=== PATIENT | male | born 1970 | race Hispanic/Latino ===

== ENCOUNTER 2018-03-15 14:52 | Inpatient (IN) | payer MEDICARE, OTHER ==
--- NOTE | 2018-03-15 15:29 | ED PDOC ---
HPI: Psych/Substance Abuse Time Seen by Provider: 03/15/18 15:06 Chief Complaint (Nursing): Psychiatric Evaluation Chief Complaint (Provider): Psychiatric Evaluation History Per: Patient History/Exam Limitations: no limitations Onset/Duration Of Symptoms: Days Current Symptoms Are (Timing): Still Present Associated Symptoms: Depression, Suicidal Thoughts Additional Complaint(s): Jeremy Gaiens is a 47 year old male with a past medical history of depression who is presenting to the ED for evaluation of worsening depression and hopelessness. Patient states that he is homeless and resides at [facility] with his girlfriend. He reports that his girlfriends executive secretary social welfare has not been helping them and he feels that he will never escape homelessness. Patient states that he takes Depakote and trazodone but he hasnt taken them in a month as they were stolen at the alf. Patient has a history of suicide attempt: 7-10 years ago he tried to hang himself. Today he states that he has been thinking about laying on train tracks and ending it all. Patient denies any homicidal ideation or auditory and visual hallucinations. He offers no physical complaints. PMD: none provided Past Medical History Reviewed: Historical Data, Nursing Documentation, Vital Signs Vital Signs: Last Vital Signs Temp 98.1 F 03/15/18 15:01 Pulse 82 03/15/18 15:01 Resp 18 03/15/18 15:01 BP 112/69 03/15/18 15:01 Pulse Ox 98 03/15/18 15:01 - Medical History PMH: Depression - Surgical History Surgical History: Appendectomy - Family History Family History: States: Unknown Family Hx - Social History Current smoker - smoking cessation education provided: Yes Alcohol: Other (former alcoholic) Drugs: Denies - Home Medications Home Medications: Ambulatory Orders Medication Instructions Recorded RX: Unobtainable 03/15/18 - Allergies Allergies/Adverse Reactions: Allergies Allergy/AdvReac Type Severity Reaction Status Date / Time No Known Allergies Allergy Verified 03/15/18 15:00 Review of Systems ROS Statement: Except As Marked, All Systems Reviewed And Found Negative Psych: Positive for: Depression, Suicidal ideation. Negative for: Other (homicidal ideation, auditory or visual hallucinations) Physical Exam - Reviewed Nursing Documentation Reviewed: Yes Vital Signs Reviewed: Yes - Physical Exam Comments: GENERAL APPEARANCE: Patient is awake, alert, oriented x 3, in no acute distress. SKIN: Warm, dry; (-) cyanosis NECK: Supple, FROM HEART AND CARDIOVASCULAR: (-) irregularity CHEST AND RESPIRATORY: (-) rales, (-) rhonchi, (-) wheezes; breath sounds equal. Respirations even and nonlabored. ABDOMEN: Soft, (-) distention, (-) tenderness, (-) guarding. NEURO AND PSYCH: Mental status as above. (-) facial asymmetry. Gait steady. Speech: clear. (-) focal deficit. - Laboratory Results Result Diagrams: 03/15/18 19:54 03/15/18 19:54 - ECG ECG Rhythm: Positive for: Normal QRS, Normal ST Segment, Sinus Bradycardia Interpretation Of ECG: QTC 409 Rate: 56 O2 Sat by Pulse Oximetry: 98 (RA) Pulse Ox Interpretation: Normal Medical Decision Making Medical Decision Making: Time: 15:07 Impression: Psychiatric Evaluation Plan: --Crisis Evaluation --1:1 Observation 18:00 Crisis at bedside. 19:45 Per crisis, patient will be admitted for depression under Dr. Patino. Additional orders were placed: --alcohol serum --CMP --Drug screen --CVC --CXR --Urinalysis 21:10 Chest X-ray reviewed with no acute findings. Labs reviewed with no clinically significant abnormalities. Patient medically stable for psych admission. Arrangements made for admission. Vitals stable. Patient agreeable to admission at this time. Scribe Attestation: Documented by Sydnie Mac, acting as a scribe for Randa Garcia PA-C. Provider Scribe Attestation: All medical record entries made by the Scribe were at my direction and personally dictated by me. I have reviewed the chart and agree that the record accurately reflects my personal performance of the history, physical exam, medical decision making, and the department course for this patient. I have also personally directed, reviewed, and agree with the discharge instructions and disposition. Disposition - Clinical Impression Clinical Impression: Depression - Patient ED Disposition Is Patient to be Admitted: Yes Counseled Patient/Family Regarding: Studies Performed, Diagnosis - Disposition Disposition Time: 21:10 Condition: STABLE - Pt Status Changed To: Hospital Disposition Of: Inpatient - Admit Certification Admit to Inpatient:: After my assessment, the patient will require hospitalization for at least two midnights. This is because of the severity of symptoms shown, intensity of services needed, and/or the medical risk in this patient being treated as an outpatient. - POA Present On Arrival: None Results - Lab Results Lab Results: 03/15/18 03/15/18 03/15/18 19:54 19:54 19:54 WBC 6.8 RBC 4.28 L Hgb 13.6 Hct 41.4 MCV 96.9 H MCH 31.9 H MCHC 32.9 L RDW 13.8 Plt Count 191 MPV 8.7 Neut % (Auto) 45.3 L Lymph % (Auto) 44.2 H Martin % (Auto) 7.2 Eos % (Auto) 2.4 Baso % (Auto) 0.9 Neut # (Auto) 3.1 Lymph # (Auto) 3.0 Martin # (Auto) 0.5 Eos # (Auto) 0.2 Baso # (Auto) 0.1 Sodium Potassium Chloride Carbon Dioxide Anion Gap BUN Creatinine Est GFR ( Amer) Est GFR (Non-Af Amer) Random Glucose Calcium Total Bilirubin AST ALT Alkaline Phosphatase Total Protein Albumin Globulin Albumin/Globulin Ratio Urine Color Yellow Urine Clarity Slighty-cloudy Urine pH 7.0 Ur Specific [place] 1.025 Urine Protein Negative Urine Glucose (UA) Neg Urine Ketones Trace Urine Blood Negative Urine Nitrate Negative Urine Bilirubin Negative Urine Urobilinogen 0.2-1.0 Ur Leukocyte Esterase Neg Urine RBC (Auto) 2 Urine Microscopic WBC 1 Amorphous Sediment Few H Urine Opiates Screen Negative Urine Methadone Screen Negative Ur Barbiturates Screen Negative Ur Phencyclidine Scrn Negative Ur Amphetamines Screen Negative U Benzodiazepines Scrn Negative U Oth Cocaine Metabols Negative U Cannabinoids Screen Negative Alcohol, Quantitative 03/15/18 19:54 WBC RBC Hgb Hct MCV MCH MCHC RDW Plt Count MPV Neut % (Auto) Lymph % (Auto) Martin % (Auto) Eos % (Auto) Baso % (Auto) Neut # (Auto) Lymph # (Auto) Martin # (Auto) Eos # (Auto) Baso # (Auto) Sodium 141 Potassium 4.2 Chloride 104 Carbon Dioxide 29 Anion Gap 12 BUN 19 Creatinine 0.9 Est GFR ( Amer) > 60 Est GFR (Non-Af Amer) > 60 Random Glucose 89 Calcium 9.6 Total Bilirubin 0.3 AST 18 ALT 19 L Alkaline Phosphatase 43 Total Protein 7.0 Albumin 3.9 Globulin 3.1 Albumin/Globulin Ratio 1.3 Urine Color Urine Clarity Urine pH Ur Specific [place] Urine Protein Urine Glucose (UA) Urine Ketones Urine Blood Urine Nitrate Urine Bilirubin Urine Urobilinogen Ur Leukocyte Esterase Urine RBC (Auto) Urine Microscopic WBC Amorphous Sediment Urine Opiates Screen Urine Methadone Screen Ur Barbiturates Screen Ur Phencyclidine Scrn Ur Amphetamines Screen U Benzodiazepines Scrn U Oth Cocaine Metabols U Cannabinoids Screen Alcohol, Quantitative < 10
[2018-03-15 20:19] LABS: BASO # 0.1 K/uL (0.0-0.2); BASO % 0.9 % (0.0-2.0); EOS # 0.2 K/uL (0.0-0.7); EOS % 2.4 % (0.0-4.0); HEMOGLOBIN 13.6 g/dL (12.0-18.0); LYMPH % 44.2 % (20.0-40.0); MEAN CELL VOLUME 96.9 fl (80.0-94.0); MEAN CORPUSCULAR HEMOGLOBIN 31.9 pg (27.0-31.0); MEAN CORPUSCULAR HGB CONC 32.9 g/dL (33.0-37.0); MEAN PLATELET VOLUME 8.7 fl (7.2-11.7); MONO # 0.5 K/uL (0.0-0.8); MONO % 7.2 % (0.0-10.0); NEUT # 3.1 K/uL (1.8-7.0); NEUT % 45.3 % (50.0-75.0); RBC 4.28 Mil/uL (4.40-5.90); RED CELL DISTRIBUTION WIDTH 13.8 % (11.5-14.5); WHITE BLOOD COUNT 6.8 K/uL (4.8-10.8)
[2018-03-15 20:24] LABS: ALB/GLOB RATIO 1.3 (1.0-2.1); ALBUMIN 3.9 g/dL (3.5-5.0); ALT/SGPT 19 U/L (21-72); AST/SGOT 18 U/L (17-59); BLOOD UREA NITROGEN 19 mg/dl (9-20); CALCIUM 9.6 mg/dL (8.4-10.2); GFR NON-AFRICAN AMERICAN > 60; URINE AMORPHOUS SEDIMENT FEW /ul (<OCC); URINE BILIRUBIN NEGATIVE (NEGATIVE); URINE BLOOD NEGATIVE (NEGATIVE); URINE CLARITY SLIGHTY-CLOUDY (Clear); URINE COLOR YELLOW (YELLOW); URINE GLUCOSE (UA) NEG (Normal); URINE LEUKOCYTE ESTERASE NEG Leu/uL (Negative); URINE PROTEIN NEGATIVE (NEGATIVE); URINE UROBILINOGEN 0.2-1.0 mg/dL (0.2-1.0)
[2018-03-15 20:38] LABS: BARBITURATES, UR NEGATIVE (NEGATIVE); BENZODIAZEPINES, UR NEGATIVE (NEGATIVE); OPIATES, UR NEGATIVE (NEGATIVE); PHENCYCLIDINE, UR NEGATIVE (NEGATIVE)
[2018-03-15] MEDS ORDERED: DiphenhydrAMINE 50 mg/ml Inj IM PRN (22:35)
[2018-03-15] MEDS ORDERED: Alum-Mag Hydrox-Simethicone Susp (30 mL) PO PRN (22:35)
[2018-03-15] MEDS ORDERED: Magnesium Hydroxide Susp 30 ml UD PO PRN (22:35)
--- NOTE | 2018-03-15 22:52 | PCM.BM ---
<KamVeniceLiane C - Last Filed: 03/15/18 22:50> Treatment Plan Problems - Problems identified on initial assessmt Hopelessness/Helplessness Date Initiated: 03/15/18 Time Initiated: 22:50 Assessment reference: NA Status: Active Medication nonadherence Date Initiated: 03/15/18 Time Initiated: 22:50 Assessment reference: NA Status: Active Treatment assets and liabiliti Patient Assests: cooperative, self-reliant, ADL independent, negotiates basic needs Patient Liabilities: financial problems, poor support system, other (homeless) - Milieu Protocol Maintain good personal hygiene: daily Encourage regular showers, every shift Remind patient to perform daily oral care Conduct patient checks and document Observation sheet: Q15 minutes Maintain personal safety: every shift Educate patient to report safety concerns to staff, every shift Monitor environment for contraband/sharps Medication safety: Monitor for expected outcome, potential side effects: every shift, Assess barriers to learning: every shift, Assess readiness for medication education: every shift <Lizandro Tripp - Last Filed: 03/17/18 13:57> - Diagnosis (1) Depression as late effect of cerebrovascular accident (CVA) Status: Acute Interventions: 03/17/18 14:07 pharmacotherapy, psychotherapy <Brooks Smith - Last Filed: 03/17/18 17:39> Family Contact Family involvement: Famliy/SO not involved Family contact: Patient declines to allow family contact at present Family contact name: Pt denied. - Outside Agency Agency 1 Care involvment: Following patient during stay, Information-sharing Agency contact name: [facility] Agency contact number: [phone] ext. [phone] - Goals for Treatment Patient goals for treatment: Pt is looking for concrete services to end his homelessness. Discharge/Continuing Care - Education Needs Education Needs: Patient Medication, Patient Diagnosis/Disease Process, Patient Coping Skills, Patient Placement options, Patient Community resources, Patient Aftercare Safety Plan - Discharge Discharge Criteria: Tolerates medication w/o severe side effects, Normal sleep pattern, Ability to care for self, Reduction of target symptoms Discharge to:: Residential - Treatment Team Participation Patient/Family/SO Statement: 03/17/18 17:37 Pt was seen in treatment team on 03/17/18. Trileptal increase was discussed as pt reported hair loss side-effects on Depakote. Pt reported that he has "mirna days and rainy days" just like everyone else. Pt spoke about his homelessness being more than he can handle and feels overwhelmed with navigating it. Dr. Tripp spoke about initiating Aricept and Namenda to aid in memory issues. Discussed with Family/SO: No Was Patient/Family/SO present at Treatment Team Meeting: Yes
[2018-03-16 06:39] LABS: T4 6.42 ug/dl (5.5-11.0)
--- NOTE | 2018-03-16 06:50 | CARD ---
APPROVED REPORT Date of service: 03/15/2018 EKG Measurement Heart [id number] <Conclusion> Sinus bradycardia Otherwise normal ECG
--- NOTE | 2018-03-16 08:31 | RAD ---
Date of service: 03/15/2018 HISTORY: psych clearance COMPARISON: No prior. FINDINGS: LUNGS: The lungs are well inflated and clear. PLEURA: No pleural effusions or pneumothorax. CARDIOVASCULAR: The heart is normal in size. No aortic atherosclerotic calcification present. OSSEOUS STRUCTURES: Within normal limits for the patient's age. VISUALIZED UPPER ABDOMEN: Normal. OTHER FINDINGS: None. IMPRESSION: No active pulmonary disease.
--- NOTE | 2018-03-16 15:20 | PCM.PSYCH ---
Initial Psychiatric Evaluation - Initial Psychiatric Evaluation Type of Admission: Voluntary Chief Complaint (in patient's own words): I can't find a way to improve my life History of Present Illness and Precipitating Events: pt is 47 ys old male with previous psychiatric diagnosis of bipolar disorder presented to ER for having suicidal ideation with plan to jump infront of the train, pt has not been compliant with medications, reported feeling increasingly depressed in the context of loosing his job, being homeless and having financial difficulties. pt reported episodes of increase anger, irritability edginess and poor impulse control on the unit reported passive suicidal ideation without active plan or intent , denied perceptual disturbances, denied substance use Current Medications: Active Medications Generic Name Dose Route Start Last Admin Trade Name Freq PRN Reason Stop Dose Admin Acetaminophen 650 mg 03/15/18 22:35 Tylenol 325mg Tab PO Q4 PRN Pain, moderate (4-7) Al Hydrox/Mg Hydrox/Simethicone 30 ml 03/15/18 22:35 Maalox Plus 30 Ml PO Q4 PRN Dyspepsia Diphenhydramine HCl 50 mg 03/15/18 22:35 Benadryl IM Q6 PRN Extrapyramidal S/S Unable PO Diphenhydramine HCl 50 mg 03/15/18 22:35 Benadryl PO Q6 PRN Extrapyramidal Symptoms Diphenhydramine HCl 50 mg 03/15/18 22:41 Benadryl PO HS PRN Sleep Haloperidol 5 mg 03/15/18 22:35 Haldol PO Q4 PRN Agitation Haloperidol Lactate 5 mg 03/15/18 22:35 Haldol IM Q4 PRN Agitation, Unable to Take PO Lorazepam 1 mg 03/15/18 22:35 Ativan IM Q4 PRN Anxiety/Agitation,Unable PO Magnesium Hydroxide 30 ml 03/15/18 22:35 Milk Of Magnesia PO HS PRN Constipation Oxcarbazepine 150 mg 03/16/18 17:00 Trileptal PO BID KATIA Trazodone HCl 100 mg 03/16/18 22:00 Desyrel PO HS KATIA Past Psychiatric History - Past Psychiatric History Explanation of prior treatment: one hospitalization, six years ago after suicidal attempt by trying to hang self History of ETOH/Drug Use: denied Pertinent Medical Hx (Current Medical&Sleep Prob, Allergies): Allergies Allergy/AdvReac Type Severity Reaction Status Date / Time No Known Allergies Allergy Verified 03/15/18 15:00 Unobtainable 03/15/18 Mental Status Examination - Personal Presentation Personal Presentation: Looks stated age - Affect Affect: Constricted, Depressed - Motor Activity Motor Activity: Psychomotor Agitation - Reliability in Providing Information Reliability in Providing Information: Fair - Speech Speech: Relevant - Mood Mood: Depressed, Anxious - Formal Thought Process Formal Thought Process: Circumstantial - Obsessions/Compulsions Obsessions: No Compulsions: No - Cognitive Functions Orientation: Person, Place Sensorium: Alert Judgement: Imparied, as evidence by: Poor judgement, Imparied, as evidence by: Lack of insight into illness - Risk Risk: Suicidal, Diminished functioning DSM 5 DX - Recommended/Plan of Treatment Treatment Recommendations and Plan of Treatment: start trileptal 150mg bid consider starting abilify for depression trazodone 100qhs internal medicine consult disposition planning
--- NOTE | 2018-03-16 19:30 | CP.PCM.CON ---
History of Present Illness - History of Present Illness History of Present Illness: 47 yo male with history of bipolar DO admitted to psyche unit because of suicidal ideation. Review of Systems - Review of Systems All systems: reviewed and no additional remarkable complaints except (aside from those mentioned above, 12 point system review were negative by me) Past Patient History - Tetanus Immunizations Tetanus Immunization: Unknown - Past Medical History & Family History Past Medical History?: No Past Family History: Reviewed and not pertinent - Past Social History Smoking Status: Heavy Smoker > 10 Cigarettes Daily Chewing Tobacco Use: No Cigar Use: No Alcohol: Other (former alcoholic) Drugs: Denies Home Situation {Lives}: Homeless - CARDIAC Hx Cardiac Disorders: No - PULMONARY Hx Respiratory Disorders: No - NEUROLOGICAL Hx Neurological Disorder: No - HEENT Hx HEENT Problems: No - RENAL Hx Chronic Kidney Disease: No - ENDOCRINE/METABOLIC Hx Endocrine Disorders: No - HEMATOLOGICAL/ONCOLOGICAL Hx Blood Disorders: No - INTEGUMENTARY Hx Dermatological Problems: No - MUSCULOSKELETAL/RHEUMATOLOGICAL Hx Musculoskeletal Disorders: No - GASTROINTESTINAL Hx Gastrointestinal Disorders: No - GENITOURINARY/GYNECOLOGICAL Hx Genitourinary Disorders: No - PSYCHIATRIC Hx Depression: Yes Hx Substance Use: Yes - SURGICAL HISTORY Hx Appendectomy: Yes - ANESTHESIA Hx Anesthesia: No Meds Allergies/Adverse Reactions: Allergies Allergy/AdvReac Type Severity Reaction Status Date / Time No Known Allergies Allergy Verified 03/15/18 15:00 - Medications Medications: Current Medications Acetaminophen (Tylenol 325mg Tab) 650 mg PO Q4 PRN PRN Reason: Pain, moderate (4-7) Al Hydrox/Mg Hydrox/Simethicone (Maalox Plus 30 Ml) 30 ml PO Q4 PRN PRN Reason: Dyspepsia Diphenhydramine HCl (Benadryl) 50 mg IM Q6 PRN PRN Reason: Extrapyramidal S/S Unable PO Diphenhydramine HCl (Benadryl) 50 mg PO Q6 PRN PRN Reason: Extrapyramidal Symptoms Diphenhydramine HCl (Benadryl) 50 mg PO HS PRN PRN Reason: Sleep Gabapentin (Neurontin) 100 mg PO TID PRN PRN Reason: Anxiety Haloperidol (Haldol) 5 mg PO Q4 PRN PRN Reason: Agitation Haloperidol Lactate (Haldol) 5 mg IM Q4 PRN PRN Reason: Agitation, Unable to Take PO Lorazepam (Ativan) 1 mg IM Q4 PRN PRN Reason: Anxiety/Agitation,Unable PO Magnesium Hydroxide (Milk Of Magnesia) 30 ml PO HS PRN PRN Reason: Constipation Nicotine (Nicoderm Cq) 1 patch TD DAILY KATIA Oxcarbazepine (Trileptal) 150 mg PO DAILY KATIA Oxcarbazepine (Trileptal) 150 mg PO HS KATIA Trazodone HCl (Desyrel) 100 mg PO HS KATIA Physical Exam - Constitutional Appears: No Acute Distress - Head Exam Head Exam: ATRAUMATIC - Eye Exam Eye Exam: absent: Scleral icterus - ENT Exam ENT Exam: Mucous Membranes Moist - Neck Exam Neck exam: Negative for: Meningismus - Respiratory Exam Respiratory Exam: absent: Rales, Rhonchi, Wheezes, Respiratory Distress - Cardiovascular Exam Cardiovascular Exam: REGULAR RHYTHM, +S1, +S2 - GI/Abdominal Exam GI & Abdominal Exam: Soft. absent: Tenderness - Rectal Exam Rectal Exam: Deferred - Extremities Exam Extremities exam: Negative for: calf tenderness, pedal edema - Back Exam Back exam: NORMAL INSPECTION - Neurological Exam Neurological exam: Alert, Oriented x3 - Psychiatric Exam Psychiatric exam: Normal Affect - Skin Skin Exam: Dry, Intact Results - Vital Signs Recent Vital Signs: Last Vital Signs Temp 97.9 F 03/16/18 17:00 Pulse 56 L 03/16/18 17:00 Resp 18 03/16/18 17:00 BP 95/55 L 03/16/18 17:00 Pulse Ox 97 03/15/18 22:26 - Labs Result Diagrams: 03/15/18 19:54 03/15/18 19:54 Labs: Laboratory Results - last 24 hr 03/15/18 03/15/18 03/15/18 19:54 19:54 19:54 WBC 6.8 RBC 4.28 L Hgb 13.6 Hct 41.4 MCV 96.9 H MCH 31.9 H MCHC 32.9 L RDW 13.8 Plt Count 191 MPV 8.7 Neut % (Auto) 45.3 L Lymph % (Auto) 44.2 H [place] % (Auto) 7.2 Eos % (Auto) 2.4 Baso % (Auto) 0.9 Neut # (Auto) 3.1 Lymph # (Auto) 3.0 Ferry # (Auto) 0.5 Eos # (Auto) 0.2 Baso # (Auto) 0.1 Sodium 141 Potassium 4.2 Chloride 104 Carbon Dioxide 29 Anion Gap 12 BUN 19 Creatinine 0.9 Est GFR ( Amer) > 60 Est GFR (Non-Af Amer) > 60 Random Glucose 89 Hemoglobin A1c Calcium 9.6 Total Bilirubin 0.3 AST 18 ALT 19 L Alkaline Phosphatase 43 Total Protein 7.0 Albumin 3.9 Globulin 3.1 Albumin/Globulin Ratio 1.3 Triglycerides Cholesterol LDL Cholesterol Direct HDL Cholesterol Thyroxine (T4) TSH 3rd Generation Urine Color Urine Clarity Urine pH Ur Specific [place] Urine Protein Urine Glucose (UA) Urine Ketones Urine Blood Urine Nitrate Urine Bilirubin Urine Urobilinogen Ur Leukocyte Esterase Urine RBC (Auto) Urine Microscopic WBC Amorphous Sediment Urine Opiates Screen Negative Urine Methadone Screen Negative Ur Barbiturates Screen Negative Ur Phencyclidine Scrn Negative Ur Amphetamines Screen Negative U Benzodiazepines Scrn Negative U Oth Cocaine Metabols Negative U Cannabinoids Screen Negative Alcohol, Quantitative < 10 RPR 03/15/18 03/16/18 03/16/18 19:54 06:08 06:08 WBC RBC Hgb Hct MCV MCH MCHC RDW Plt Count MPV Neut % (Auto) Lymph % (Auto) [place] % (Auto) Eos % (Auto) Baso % (Auto) Neut # (Auto) Lymph # (Auto) [place] # (Auto) Eos # (Auto) Baso # (Auto) Sodium Potassium Chloride Carbon Dioxide Anion Gap BUN Creatinine Est GFR ( Amer) Est GFR (Non-Af Amer) Random Glucose Hemoglobin A1c 5.3 Calcium Total Bilirubin AST ALT Alkaline Phosphatase Total Protein Albumin Globulin Albumin/Globulin Ratio Triglycerides 48 Cholesterol 141 LDL Cholesterol Direct 85 HDL Cholesterol 50 Thyroxine (T4) 6.42 TSH 3rd Generation 1.83 Urine Color Yellow Urine Clarity Slighty-cloudy Urine pH 7.0 Ur Specific [place] 1.025 Urine Protein Negative Urine Glucose (UA) Neg Urine Ketones Trace Urine Blood Negative Urine Nitrate Negative Urine Bilirubin Negative Urine Urobilinogen 0.2-1.0 Ur Leukocyte Esterase Neg Urine RBC (Auto) 2 Urine Microscopic WBC 1 Amorphous Sediment Few H Urine Opiates Screen Urine Methadone Screen Ur Barbiturates Screen Ur Phencyclidine Scrn Ur Amphetamines Screen U Benzodiazepines Scrn U Oth Cocaine Metabols U Cannabinoids Screen Alcohol, Quantitative RPR 03/16/18 06:08 WBC RBC Hgb Hct MCV MCH MCHC RDW Plt Count MPV Neut % (Auto) Lymph % (Auto) Ferry % (Auto) Eos % (Auto) Baso % (Auto) Neut # (Auto) Lymph # (Auto) [place] # (Auto) Eos # (Auto) Baso # (Auto) Sodium Potassium Chloride Carbon Dioxide Anion Gap BUN Creatinine Est GFR ( Amer) Est GFR (Non-Af Amer) Random Glucose Hemoglobin A1c Calcium Total Bilirubin AST ALT Alkaline Phosphatase Total Protein Albumin Globulin Albumin/Globulin Ratio Triglycerides Cholesterol LDL Cholesterol Direct HDL Cholesterol Thyroxine (T4) TSH 3rd Generation Urine Color Urine Clarity Urine pH Ur Specific [place] Urine Protein Urine Glucose (UA) Urine Ketones Urine Blood Urine Nitrate Urine Bilirubin Urine Urobilinogen Ur Leukocyte Esterase Urine RBC (Auto) Urine Microscopic WBC Amorphous Sediment Urine Opiates Screen Urine Methadone Screen Ur Barbiturates Screen Ur Phencyclidine Scrn Ur Amphetamines Screen U Benzodiazepines Scrn U Oth Cocaine Metabols U Cannabinoids Screen Alcohol, Quantitative RPR Nonreactive Assessment & Plan (1) Suicidal ideation Status: Acute Comment: psyche is managing
--- NOTE | 2018-03-17 14:20 | PCM.PYCHPN ---
Psychiatric Progress Note - Psychiatric Progress Note Patient seen today, length of contact: pt evaluated discussed with team chart reviewed Patient Chief Complaint: I feel angry because I do not get the help I need Problems Identified/Issues Discussed: pt evaluated with treatment team, presenting with depressed, irritable mood, anxious affect, related that to his current episodes of memory losses which started after his suicidal attempt six years ago, pt also frustrated because of his current financial and social stressors, discussed increasing the dose of trileptal for mood stabilization, also discussed adding aricept for memory losses. , no reported current side effects encouraged pt to attend groups, CBT provided discussing healthy coping skills with stress pt denied perceptual disturbances, denied any current suicidal or homicidal ideation Medical Problems: one hospitalization, six years ago after suicidal attempt by trying to hang self DSM 5 Symptoms Update: bipolar disorder Medication Change: Yes (increase trileptal) Medical Record Reviewed: Yes Mental Status Examination - Cognitive Function Orientation: Person, Place Memory: Impaired, Recent Attention: WNL Concentration: WNL Association: WNL Fund of Knowledge: Poor Decription of patient's judgement and insights: partial insight and fair judgment - Mood Mood: Depressed, Anxious - Affect Affect: Constricted, Depressed - Speech Speech: Appropriate - Formal Thought Process Formal Thought Process: Circumstantial Psychotic Thoughts and Behaviors: pt denied perceptual disturbances - Suicidal Ideation Suicidal Ideation: No - Homicidal Ideation Homicidal Ideation: No Goal/Treatment Plan - Goal/Treatment Plan Need for Continued Stay: Discharge may exacerbated symptoms Progress Toward Problem(s) and Goals/Treatment Plan: increase trileptal 300mg bid start aricept 5mg qhs, increase gradually trazodone 100qhs follow up on psychopharmacological effects and side effect profile disposition planning
[2018-03-18 03:24] VITALS: O2SAT 98
--- NOTE | 2018-03-18 08:44 | PCM.PYCHPN ---
Psychiatric Progress Note - Psychiatric Progress Note Patient seen today, length of contact: pt evaluated discussed with team chart reviewed Patient Chief Complaint: pt has been less depressed and less anxious and still having still memory issues and still cant sleep at night and denies side effects to meds.pt still has poor insight and need further stabilization. Medication Change: Yes (increase trileptal) Medical Record Reviewed: Yes Mental Status Examination - Cognitive Function Orientation: Person, Place Memory: Impaired, Recent Attention: WNL Concentration: WNL Association: WNL Fund of Knowledge: Poor - Mood Mood: Depressed, Anxious - Affect Affect: Constricted, Depressed - Speech Speech: Appropriate - Formal Thought Process Formal Thought Process: Circumstantial - Suicidal Ideation Suicidal Ideation: No - Homicidal Ideation Homicidal Ideation: No Goal/Treatment Plan - Goal/Treatment Plan Need for Continued Stay: Discharge may exacerbated symptoms
[2018-03-18 16:39] VITALS: RESP 18
--- NOTE | 2018-03-19 12:55 | PCM.PYCHPN ---
Psychiatric Progress Note - Psychiatric Progress Note Patient seen today, length of contact: pt evaluated discussed with team chart reviewed Patient Chief Complaint: pt is sleeping better on vistaril and has been less depressed and less anxious and still having still memory issues and still cant sleep at night and denies side effects to meds.pt still has poor insight and need further stabilization. Medication Change: Yes (increase trileptal) Medical Record Reviewed: Yes Mental Status Examination - Cognitive Function Orientation: Person, Place Memory: Impaired, Recent Attention: WNL Concentration: WNL Association: WNL Fund of Knowledge: Poor - Mood Mood: Depressed, Anxious - Affect Affect: Constricted, Depressed - Speech Speech: Appropriate - Formal Thought Process Formal Thought Process: Circumstantial - Suicidal Ideation Suicidal Ideation: No - Homicidal Ideation Homicidal Ideation: No Goal/Treatment Plan - Goal/Treatment Plan Need for Continued Stay: Discharge may exacerbated symptoms Progress Toward Problem(s) and Goals/Treatment Plan: will continue to titrate meds to stabilize pt and d/c trazodone as per pt 's request.
[2018-03-19 17:05] VITALS: TEMP 98
[2018-03-20 09:05] VITALS: BP 122/78; PULSE 73
--- NOTE | 2018-03-20 11:53 | PCM.PYCHDC ---
Mental Status Examination - Mental Status Examination Orientation: Person, Place, Situation Memory: Impaired, Recent Mood: Neutral Affect: Broad Speech: Appropriate Attention: WNL Concentration: WNL Association: WNL Fund of Knowledge: WNL Description of patient's judgement and insight: partial insight and fair judgment Psychotic Thoughts and Behaviors: pt denied perceptual disturbances Suicidal Ideation: No Current Homicidal Ideation?: No Discharge Summary - Discharge Note Reason for Hospitalization: pt is 47 ys old male with previous psychiatric diagnosis of bipolar disorder presented to ER for having suicidal ideation with plan to jump infront of the train, pt has not been compliant with medications, reported feeling increasingly depressed in the context of loosing his job, being homeless and having financial difficulties. pt reported episodes of increase anger, irritability edginess and poor impulse control on the unit reported passive suicidal ideation without active plan or intent , denied perceptual disturbances, denied substance use Consultations:: List each consultation separately and include: 1. Reason for request. 2. Findings. 3. Follow-up Summary of Hospital Course include:: 1. Description of specific treatment plan utilized for patients during their course of treatmen. 2. Summarize the time- course for resolution of acute symptoms and/or regressed behaviors. 3. Describe issues identified and worked on during hospitalization. 4. Describe medication utilized. 5. Describe medical problems identified and treated. 6. Reassessment of suicide risk Summary of Hospital Course: pt on admission, was started on trileptal 150mg bid for impulse control and mood stabilization, it was increased to 300mg bid pt was started on trazodone for insomnia and aricept for recent memory losses pt was compliant with treatment , attended groups, no reported side effects of medications on dicharge mental status was stable, pt denied any current suicidal or homicidal ideation, denied perceptual disturbances, follow up arranged by social media assistant at [facility] outpatient [facility] - Diagnosis (1) Depression as late effect of cerebrovascular accident (CVA) Current Visit: Yes Status: Acute - Final Diagnosis (DSM 5) Condition upon Discharge: STABLE DSM 5: bipolar I disorder Disposition: HOME/ ROUTINE Prescriptions/Medication Reconciliation: Donepezil [Aricept] 5 mg PO HS 30 Days #30 tab Gabapentin [Neurontin] 100 mg PO TID PRN 30 Days #90 cap PRN Reason: Anxiety OXcarbazepine [Trileptal] 300 mg PO DAILY 30 Days #30 tab OXcarbazepine [Trileptal] 300 mg PO HS 30 Days #30 tab traZODone [Desyrel] 50 mg PO HS 30 Days #30 tab - Antipsychotic Medications Pt discharged on 2 or more routine antipsychotic medications: No
== END 2018-03-20 12:20 | disposition home or self-care (01) | DRG 885 ==
LOC: H.ER 14:52 → H.ERHOLD 21:28 → H.PSYCH 22:28
PROVIDERS: ADMIT Psychiatry & Neurology Psychiatry; ATTEND Psychiatry & Neurology Psychiatry
PROC: GZHZZZZ Group Psychotherapy (ICD-10-PCS; principal; 2018-03-15)
DX: F31.9 Bipolar disorder, unspecified (principal); R45.851 Suicidal ideations; Z59.0 Homelessness; Z91.14 Patient's other noncompliance with medication regimen; F17.210 Nicotine dependence, cigarettes, uncomplicated; G47.00 Insomnia, unspecified; F10.21 Alcohol dependence, in remission; Z59.9 Problem related to housing and economic circumstances, unspecified

== ENCOUNTER 2018-04-07 08:04 | Emergency (ER) | payer MEDICARE, OTHER ==
[2018-04-07 08:10] VITALS: BP 122/74; PULSE 67; RESP 20; TEMP 95; O2SAT 100
--- NOTE | 2018-04-07 09:06 | ED PDOC ---
HPI: Psych/Substance Abuse Time Seen by Provider: 04/07/18 08:53 Chief Complaint (Nursing): Psychiatric Evaluation Chief Complaint (Provider): Psychiatric Evaluation History Per: Patient History/Exam Limitations: no limitations Onset/Duration Of Symptoms: Days Current Symptoms Are (Timing): Still Present Associated Symptoms: Depression, Suicidal Thoughts Additional Complaint(s): 47 year old male with past medical history of depression presents to the ED for an evaluation of psychiatric evaluation. Patient states he stopped taking Trazodone and Depakote because he is living in the long term. He reports of suicidal thought but patient does not want to kill himself presently. Denies any other complaints. Past Medical History Reviewed: Historical Data, Nursing Documentation, Vital Signs Vital Signs: Last Vital Signs Temp 95 F L 04/07/18 08:07 Pulse 67 04/07/18 08:07 Resp 20 04/07/18 08:07 BP 122/74 04/07/18 08:07 Pulse Ox 100 04/07/18 08:07 - Medical History PMH: Depression Denies: Chronic Kidney Disease - Surgical History Surgical History: Appendectomy - Family History Family History: States: Unknown Family Hx - Social History Current smoker - smoking cessation education provided: Yes Alcohol: None Drugs: Denies - Home Medications Home Medications: Ambulatory Orders Medication Instructions Recorded Donepezil [Aricept] 5 mg PO HS 30 Days #30 tab 03/20/18 Gabapentin [Neurontin] 100 mg PO TID PRN 30 Days #90 cap 03/20/18 OXcarbazepine [Trileptal] 300 mg PO DAILY 30 Days #30 tab 03/20/18 OXcarbazepine [Trileptal] 300 mg PO HS 30 Days #30 tab 03/20/18 traZODone [Desyrel] 50 mg PO HS 30 Days #30 tab 03/20/18 - Allergies Allergies/Adverse Reactions: Allergies Allergy/AdvReac Type Severity Reaction Status Date / Time No Known Allergies Allergy Verified 04/07/18 08:43 Review of Systems ROS Statement: Except As Marked, All Systems Reviewed And Found Negative Constitutional: Negative for: Fever, Chills Cardiovascular: Negative for: Chest Pain Respiratory: Negative for: Shortness of Breath Gastrointestinal: Negative for: Abdominal Pain Physical Exam - Reviewed Nursing Documentation Reviewed: Yes Vital Signs Reviewed: Yes - Physical Exam Head Exam: Positive for: ATRAUMATIC, NORMAL INSPECTION, NORMOCEPHALIC Skin: Positive for: Normal Color, Warm, Dry. Negative for: Rash Eye Exam: Positive for: EOMI, Normal appearance, PERRL ENT: Positive for: Normal ENT Inspection Neck: Positive for: Normal, Painless ROM Cardiovascular/Chest: Positive for: Regular Rate, Rhythm. Negative for: Murmur Respiratory: Positive for: Normal Breath Sounds. Negative for: Decreased Breath Sounds, Wheezing, Respiratory Distress Gastrointestinal/Abdominal: Positive for: Normal Exam, Soft. Negative for: Tenderness Extremity: Positive for: Normal ROM. Negative for: Tenderness, Pedal Edema, Deformity Neurologic/Psych: Positive for: Alert, Oriented (x3). Negative for: Motor/Sensory Deficits - ECG O2 Sat by Pulse Oximetry: 100 (RA) Pulse Ox Interpretation: Normal Medical Decision Making Medical Decision Making: Time: 852 Initial Plan: 1:1 Observation Reevaluation Scribe Attestation: Documented by William Mendoza, acting as a scribe for Keyur Souza MD. Provider Scribe Attestation: All medical record entries made by the Scribe were at my direction and personally dictated by me. I have reviewed the chart and agree that the record accurately reflects my personal performance of the history, physical exam, medical decision making, and the department course for this patient. I have also personally directed, reviewed, and agree with the discharge instructions and disposition. Disposition - Clinical Impression Clinical Impression: Depression - Patient ED Disposition Is Patient to be Admitted: No Counseled Patient/Family Regarding: Diagnosis, Need For Followup - Disposition Disposition: Routine/Home Disposition Time: 10:03 Condition: FAIR Additional Instructions: For Mental Health, f/up with [facility] [employer] [facility] ([facility] [place] [address] Instructions: Depression Forms: [employer] (Frisian)
== END 2018-04-07 10:35 | disposition home or self-care (01) ==
LOC: H.ER 08:04
DX: F32.9 Major depressive disorder, single episode, unspecified (principal)

== ENCOUNTER 2018-05-12 13:09 | Emergency (ER) | payer MEDICARE, OTHER ==
[2018-05-12 13:41] VITALS: RESP 18
--- NOTE | 2018-05-12 14:26 | ED PDOC ---
HPI: General Adult Time Seen by Provider: 05/12/18 13:42 Chief Complaint (Nursing): Abnormal Skin Integrity Chief Complaint (Provider): Rash History Per: Patient History/Exam Limitations: no limitations Onset/Duration Of Symptoms: Days Have you had recent travel within the past 21 days to any of the following countries: [place], [place], [place] or [place]?: No Current Symptoms Are (Timing): Still Present Additional History Per: Patient Additional Complaint(s): 47yo male, comes to ER reporting an itchy, red rash present diffusely to his arms, abdomen and back x 3 days. Patient states he sleeps at the homeless alf and takes Depakote (has been taking for 2 months). Patient otherwise denies any new medications or exposure to other allergens. Patient denies any shortness of breath, throat or tongue swelling, and offers no additional complaints. Past Medical History Reviewed: Historical Data, Nursing Documentation, Vital Signs Vital Signs: Last Vital Signs Temp 98.0 F 05/12/18 13:39 Pulse 82 05/12/18 13:39 Resp 18 05/12/18 13:39 BP 115/68 05/12/18 13:39 Pulse Ox 99 05/12/18 13:39 - Medical History PMH: Depression Denies: Diabetes, Hepatitis, HIV, HTN, Chronic Kidney Disease, Seizures, Sexually Transmitted Disease - Surgical History Surgical History: Appendectomy - Family History Family History: States: No Known Family Hx, Unknown Family Hx - Living Arrangements Living Arrangements: Other ([facility] alf) - Home Medications Home Medications: Ambulatory Orders Medication Instructions Recorded RX: Donepezil [Aricept] 5 mg PO HS 30 Days #30 tab 03/20/18 RX: Gabapentin [Neurontin] 100 mg PO TID PRN 30 Days #90 cap 03/20/18 RX: OXcarbazepine [Trileptal] 300 mg PO DAILY 30 Days #30 tab 03/20/18 RX: OXcarbazepine [Trileptal] 300 mg PO HS 30 Days #30 tab 03/20/18 RX: traZODone [Desyrel] 50 mg PO HS 30 Days #30 tab 03/20/18 RX: DiphenhydrAMINE [Benadryl] 50 mg PO DAILY #30 cap 04/28/18 RX: QUEtiapine [SEROquel] 50 mg PO HS #30 tab 04/28/18 RX: traZODone [Desyrel] 100 mg PO HS PRN #30 tab 04/28/18 Permethrin [Elimite] 60 gm TP ONCE #1 cream..g. 05/12/18 - Allergies Allergies/Adverse Reactions: Allergies Allergy/AdvReac Type Severity Reaction Status Date / Time No Known Allergies Allergy Verified 05/12/18 13:38 Review of Systems ROS Statement: Except As Marked, All Systems Reviewed And Found Negative ENT: Negative for: Mouth Swelling, Throat Swelling Respiratory: Negative for: Shortness of Breath Skin: Positive for: Rash Physical Exam - Reviewed Nursing Documentation Reviewed: Yes Vital Signs Reviewed: Yes - Physical Exam Appears: Positive for: No Acute Distress Head Exam: Positive for: ATRAUMATIC, NORMAL INSPECTION, NORMOCEPHALIC Skin: Positive for: Rash (multiple erythematous papules, (+) pruritus noted to bilateral arms, abdomen, back and lower extremity, no surrounding infection. No intra-oral involvement.) Eye Exam: Positive for: Normal appearance Neck: Positive for: Supple Cardiovascular/Chest: Positive for: Regular Rate, Rhythm Respiratory: Positive for: Normal Breath Sounds Neurologic/Psych: Positive for: Alert, Oriented. Negative for: Motor/Sensory Deficits - ECG O2 Sat by Pulse Oximetry: 99 (RA) Pulse Ox Interpretation: Normal Medical Decision Making Medical Decision Making: Assessment: 47yo male with skin rash; likely bedbugs and proper precautions for bedbugs Plan: -- Patient to be discharged home with elimite. Scribe Attestation: Documented by Dinorah Foote acting as a scribe for CHERYL Smith. Provider Attestation: All medical record entries made by the Scribe were at my direction and personally dictated by me. I have reviewed the chart and agree that the record accurately reflects my personal performance of the history, physical exam, medical decision making, and the department course for this patient. I have also personally directed, reviewed, and agree with the discharge instructions and disposition. Disposition - Clinical Impression Clinical Impression: Rash and nonspecific skin eruption, Bed bug bite - Disposition [facility]errals: [facility] [Outside] Disposition Time: 16:00 Condition: STABLE Prescriptions: Permethrin [Elimite] 60 gm TP ONCE #1 cream..g. Instructions: Skin Rash (DC), Bedbugs Forms: [employer] (Yi)
[2018-05-12 15:56] VITALS: BP 109/72; PULSE 85; TEMP 98.6
[2018-05-12 17:20] VITALS: O2SAT 99
== END 2018-05-12 15:55 | disposition home or self-care (01) ==
LOC: H.ER 13:09
DX: R21 Rash and other nonspecific skin eruption (principal)

== ENCOUNTER 2018-05-21 13:10 | Emergency (ER) | payer MEDICARE, OTHER ==
[2018-05-21 13:16] VITALS: BP 120/73; PULSE 82; RESP 19; TEMP 97.7; O2SAT 97
--- NOTE | 2018-05-21 14:01 | ED PDOC ---
HPI: Psych/Substance Abuse Time Seen by Provider: 05/21/18 13:18 Chief Complaint (Nursing): Psychiatric Evaluation Chief Complaint (Provider): Psychiatric Evaluation History Per: Patient History/Exam Limitations: no limitations Additional Complaint(s): 47 year old male presents to the ED for a psychiatric evaluation. Patient reports he has been having a hard time finding housing and is frustrated with the process. Patient has the card of somebody who is helping him look for housing. He states he doesn't want to stay at the halfway anymore. He was [place] [facility] today and thought he could just lie on the tracks but he immediately thought that would be a very dumb idea and he had no intention to do so. He indicates even though he finds the process overwhelming and frustrating, he has no suicidal plan or ideation. PMD: none Past Medical History Reviewed: Historical Data, Nursing Documentation, Vital Signs Vital Signs: Last Vital Signs Temp 97.7 F 05/21/18 13:11 Pulse 82 05/21/18 13:11 Resp 19 05/21/18 13:11 BP 120/73 05/21/18 13:11 Pulse Ox 97 05/21/18 13:11 - Medical History PMH: Depression Denies: Diabetes, Hepatitis, HIV, HTN, Chronic Kidney Disease, Seizures, Sexually Transmitted Disease - Surgical History Surgical History: Appendectomy - Family History Family History: States: Unknown Family Hx - Home Medications Home Medications: Ambulatory Orders Medication Instructions Recorded Donepezil [Aricept] 5 mg PO HS 30 Days #30 tab 03/20/18 Gabapentin [Neurontin] 100 mg PO TID PRN 30 Days #90 cap 03/20/18 OXcarbazepine [Trileptal] 300 mg PO DAILY 30 Days #30 tab 03/20/18 OXcarbazepine [Trileptal] 300 mg PO HS 30 Days #30 tab 03/20/18 traZODone [Desyrel] 50 mg PO HS 30 Days #30 tab 03/20/18 DiphenhydrAMINE [Benadryl] 50 mg PO DAILY #30 cap 04/28/18 QUEtiapine [SEROquel] 50 mg PO HS #30 tab 04/28/18 traZODone [Desyrel] 100 mg PO HS PRN #30 tab 04/28/18 Permethrin [Elimite] 60 gm TP ONCE #1 cream..g. 05/12/18 - Allergies Allergies/Adverse Reactions: Allergies Allergy/AdvReac Type Severity Reaction Status Date / Time No Known Allergies Allergy Verified 05/12/18 13:38 Review of Systems ROS Statement: Except As Marked, All Systems Reviewed And Found Negative Psych: Negative for: Suicidal ideation (or plan) Physical Exam - Reviewed Nursing Documentation Reviewed: Yes Vital Signs Reviewed: Yes - Physical Exam Appears: Positive for: Non-toxic, No Acute Distress Head Exam: Positive for: ATRAUMATIC, NORMOCEPHALIC Skin: Positive for: Normal Color, Warm, Dry Eye Exam: Positive for: Normal appearance Neck: Positive for: Normal, Painless ROM Cardiovascular/Chest: Positive for: Regular Rate, Rhythm Respiratory: Positive for: Normal Breath Sounds. Negative for: Wheezing, Respiratory Distress Extremity: Positive for: Normal ROM Neurologic/Psych: Positive for: Alert, Oriented - ECG O2 Sat by Pulse Oximetry: 97 (RA) Pulse Ox Interpretation: Normal Medical Decision Making Medical Decision Making: Initial Plan: --Crisis evaluation Crisis evaluated patient at bedside. She spoke with pt. at length regarding housing and pt. is very comfortable with plan, he again denies any SI/Hi. Patient is stable for discharge with referrals for housing. Scribe Attestation: Documented by Edwin Corral acting as a scribe for Jailyn HANSON Provider Scribe Attestation: All medical record entries made by the Scribe were at my direction and personally dictated by me. I have reviewed the chart and agree that the record accurately reflects my personal performance of the history, physical exam, medical decision making, and the department course for this patient. I have also personally directed, reviewed, and agree with the discharge instructions and disposition. Disposition - Clinical Impression Clinical Impression: Depression - Patient ED Disposition Is Patient to be Admitted: No Discussed With : Mateo A Sandra - Disposition Disposition: Routine/Home Disposition Time: 14:27 Condition: STABLE Additional Instructions: FOR MENTAL HEALTH SERVICES: [facility] [address], [place] [phone] TUESDAY-TUESDAY: 9AM-8PM TUESDAY AND TUESDAY: 10AM-6PM FOR INTENSIVE CASE MANAGEMENT SERVICES GO TO THE FOLLOWING AGENCY ON Tuesday AND APPLY COLLABORATIVE SUPPORT PROGRAM OF [address] [phone] PLEASE ASK FOR GEMINI RUSSELL FOR HOUSING ASSISTANCE CALL ON TUESDAY MORNING [facility] [address] [facility] [phone] Instructions: Depression, Adult (DC) Forms: [email or web address] (Palauan)
== END 2018-05-21 14:38 | disposition home or self-care (01) ==
LOC: H.ER 13:10
DX: F32.9 Major depressive disorder, single episode, unspecified (principal)

== ENCOUNTER 2018-06-03 14:58 | Emergency (ER) | payer MEDICAID, MEDICARE, OTHER ==
[2018-06-03 15:07] VITALS: BP 126/72; PULSE 72; RESP 20; TEMP 98.9; O2SAT 98
--- NOTE | 2018-06-03 15:27 | ED PDOC ---
HPI: Skin/Bite Injury Time Seen by Provider: 06/03/18 15:15 Chief Complaint (Nursing): Abnormal Skin Integrity Chief Complaint (Provider): Abnormal Skin Integrity History Per: Patient History/Exam Limitations: no limitations Onset/Duration Of Symptoms: Days (x1) Current Symptoms Are (Timing): Still Present Additional Complaint(s): Patient is a 47 y/o male with a PMHx of depression who presents to the ED for evaluation of a burning rash across his face, onset yesterday. Patient was seen at another clinic a couple weeks ago and was prescribed medication including Barbara proic acid but has not taken medication for the past week. Patient feels like the medication is inducing the rash. Patient was recently seen in the ED for rashes on his arms and body that was associated with bug bites. Patient cannot recall what medication was prescribed. Of note, patient is homeless and sleeps in the homeless residential. Patient reports to have showered yesterday. In addition, patient claims to have an issue with his memory. PCP: None Provided Past Medical History Reviewed: Historical Data, Nursing Documentation, Vital Signs Vital Signs: Last Vital Signs Temp 98.9 F 06/03/18 15:05 Pulse 72 06/03/18 15:05 Resp 20 06/03/18 15:05 BP 126/72 06/03/18 15:05 Pulse Ox 98 06/03/18 15:05 - Medical History PMH: No Chronic Diseases, Depression Denies: Diabetes, Hepatitis, HIV, HTN, Chronic Kidney Disease, Seizures, Sexually Transmitted Disease - Surgical History Surgical History: Appendectomy - Family History Family History: States: Unknown Family Hx - Living Arrangements Living Arrangements: Other (homeless) - Immunization History Hx Tetanus Toxoid Vaccination: No Hx Influenza Vaccination: No Hx Pneumococcal Vaccination: No - Home Medications Home Medications: Ambulatory Orders Medication Instructions Recorded Donepezil [Aricept] 5 mg PO HS 30 Days #30 tab 03/20/18 OXcarbazepine [Trileptal] 300 mg PO DAILY 30 Days #30 tab 03/20/18 OXcarbazepine [Trileptal] 300 mg PO HS 30 Days #30 tab 03/20/18 traZODone [Desyrel] 50 mg PO HS 30 Days #30 tab 03/20/18 DiphenhydrAMINE [Benadryl] 50 mg PO DAILY #30 cap 04/28/18 QUEtiapine [SEROquel] 50 mg PO HS #30 tab 04/28/18 traZODone [Desyrel] 100 mg PO HS PRN #30 tab 04/28/18 Permethrin [Elimite] 60 gm TP ONCE #1 cream..g. 05/12/18 Gabapentin [Neurontin] 100 mg PO TID PRN 60 Days #60 cap 05/30/18 OXcarbazepine [Trileptal] 150 mg PO BID #60 tab 05/30/18 traZODone [Desyrel] 100 mg PO HS #30 tab 05/30/18 Hydrocortisone 0.5% 0.5 gm TP BID #1 tube 06/03/18 - Allergies Allergies/Adverse Reactions: Allergies Allergy/AdvReac Type Severity Reaction Status Date / Time No Known Allergies Allergy Verified 05/12/18 13:38 Review of Systems ROS Statement: Except As Marked, All Systems Reviewed And Found Negative Skin: Positive for: Rash (burning sensation across face; was before all over body) Neurological: Positive for: Other (Poor Memory) Physical Exam - Reviewed Nursing Documentation Reviewed: Yes Vital Signs Reviewed: Yes - Physical Exam Appears: Positive for: No Acute Distress Head Exam: Positive for: ATRAUMATIC, NORMAL INSPECTION, NORMOCEPHALIC Skin: Positive for: Rash (erythematous across ridge of nose; not in butterfly pattern; marked with areas of closed comedones across the erythemity) Eye Exam: Positive for: EOMI, Normal appearance, PERRL Neck: Positive for: Normal, Painless ROM, Supple Cardiovascular/Chest: Positive for: Regular Rate, Rhythm. Negative for: Murmur Respiratory: Positive for: Normal Breath Sounds. Negative for: Respiratory Distress Extremity: Positive for: Normal ROM (Upper/Lower). Negative for: Pedal Edema, Deformity Neurologic/Psych: Positive for: Alert, Oriented, Other (Poor Memory). Negative for: Motor/Sensory Deficits - ECG O2 Sat by Pulse Oximetry: 98 (RA) Pulse Ox Interpretation: Normal Medical Decision Making Medical Decision Making: Time: 1525 Impression: Rash or Bug Bites; hygeine related rash Plan: Benadryl 50 mg PO Decadron Inj 10 mg IM Pt is stable for discharge with itching mildly alleviated Scribe Attestation: Documented by Rodrigo Aguilar, acting as a scribe for CHERYL Chu. Provider Scribe Attestation: All medical record entries made by the Scribe were at my direction and personally dictated by me. I have reviewed the chart and agree that the record accurately reflects my personal performance of the history, physical exam, medical decision making, and the department course for this patient. I have also personally directed, reviewed, and agree with the discharge instructions and disposition. Disposition - Clinical Impression Clinical Impression: Rash and nonspecific skin eruption - Patient ED Disposition Is Patient to be Admitted: No Doctor Will See Patient In The: Office Counseled Patient/Family Regarding: Studies Performed, Diagnosis, Need For Followup, Rx Given - Disposition Referrals: Avni Keller MD [Medical Doctor] - Shola Larson DO [Doctor Osteopathy] - Shady Villa Jr., MD [Medical Doctor] - Disposition: Routine/Home Disposition Time: 15:55 Condition: STABLE Additional Instructions: follow up with dermatology and bathe frequently Prescriptions: Hydrocortisone 0.5% 0.5 gm TP BID #1 tube Instructions: Skin Rash (DC), Skin Rash, Topical Corticosteroid Medicines Forms: [employer] (Bruneian)
== END 2018-06-03 16:12 | disposition home or self-care (01) ==
LOC: H.ER 14:58
DX: R21 Rash and other nonspecific skin eruption (principal)
CPT/HCPCS: 96372; 99282; J1100

== ENCOUNTER 2018-06-07 12:17 | Inpatient (IN) | payer MEDICARE ==
[2018-06-07 13:10] VITALS: O2SAT 97
--- NOTE | 2018-06-07 14:21 | ED PDOC ---
HPI: Psych/Substance Abuse Time Seen by Provider: 06/07/18 13:21 Chief Complaint (Nursing): Psychiatric Evaluation Chief Complaint (Provider): Psychiatric Evaluation History Per: Patient History/Exam Limitations: no limitations Onset/Duration Of Symptoms: Days Current Symptoms Are (Timing): Still Present Associated Symptoms: Suicidal Thoughts. denies: Suicidal Plan Additional Complaint(s): 47 year old male with a past medical history of depression and suicidal attempts in the past (which he will not elaborate on) who is presenting to the ED for evaluation of suicidal ideation. Patient states that today he feels like his symptoms are becoming more sever. He denies having any pills or having any plan to hurt himself at this time. Patient denies any medical complaints at this time. PMD: none provided Past Medical History Reviewed: Historical Data, Nursing Documentation, Vital Signs Vital Signs: Last Vital Signs Temp 98.1 F 06/07/18 13:05 Pulse 82 06/07/18 13:05 Resp 16 06/07/18 13:05 BP 117/80 06/07/18 13:05 Pulse Ox 97 06/07/18 13:05 - Medical History PMH: Depression - Surgical History Surgical History: Appendectomy - Family History Family History: States: Unknown Family Hx - Social History Current smoker - smoking cessation education provided: No Alcohol: None Drugs: Denies - Home Medications Home Medications: Ambulatory Orders Medication Instructions Recorded RX: Donepezil [Aricept] 5 mg PO HS 30 Days #30 tab 03/20/18 RX: OXcarbazepine [Trileptal] 300 mg PO DAILY 30 Days #30 tab 03/20/18 RX: OXcarbazepine [Trileptal] 300 mg PO HS 30 Days #30 tab 03/20/18 RX: traZODone [Desyrel] 50 mg PO HS 30 Days #30 tab 03/20/18 RX: DiphenhydrAMINE [Benadryl] 50 mg PO DAILY #30 cap 04/28/18 RX: QUEtiapine [SEROquel] 50 mg PO HS #30 tab 04/28/18 RX: traZODone [Desyrel] 100 mg PO HS PRN #30 tab 04/28/18 Permethrin [Elimite] 60 gm TP ONCE #1 cream..g. 05/12/18 RX: Gabapentin [Neurontin] 100 mg PO TID PRN 60 Days #60 cap 05/30/18 RX: OXcarbazepine [Trileptal] 150 mg PO BID #60 tab 05/30/18 RX: traZODone [Desyrel] 100 mg PO HS #30 tab 05/30/18 RX: Hydrocortisone 0.5% 0.5 gm TP BID #1 tube 06/03/18 DiphenhydrAMINE [Benadryl] 50 mg PO HS 06/07/18 QUEtiapine [SEROquel] 50 mg PO HS 06/07/18 RX: traZODone [Desyrel] 100 mg PO HS PRN 06/07/18 - Allergies Allergies/Adverse Reactions: Allergies Allergy/AdvReac Type Severity Reaction Status Date / Time No Known Allergies Allergy Verified 06/08/18 10:14 Review of Systems ROS Statement: Except As Marked, All Systems Reviewed And Found Negative Psych: Positive for: Suicidal ideation. Negative for: Other (homicidal ideation or plan ) Physical Exam - Reviewed Nursing Documentation Reviewed: Yes Vital Signs Reviewed: Yes - Physical Exam Appears: Positive for: Non-toxic, No Acute Distress Head Exam: Positive for: ATRAUMATIC, NORMAL INSPECTION, NORMOCEPHALIC Skin: Positive for: Warm. Negative for: Normal Color (erythematous, purpuric small raised lessions to flexor surface of arms and elbow consistent with scabies) Eye Exam: Positive for: Normal appearance, EOMI, PERRL ENT: Positive for: Normal ENT Inspection Neck: Positive for: Normal, Painless ROM Cardiovascular/Chest: Positive for: Regular Rate, Rhythm. Negative for: Murmur Respiratory: Positive for: Normal Breath Sounds. Negative for: Respiratory Distress Gastrointestinal/Abdominal: Positive for: Normal Exam, Soft. Negative for: Tenderness Back: Positive for: Normal Inspection Extremity: Positive for: Normal ROM. Negative for: Deformity, Swelling Neurologic/Psych: Positive for: Alert, Oriented. Negative for: Motor/Sensory Deficits - Laboratory Results Result Diagrams: 06/08/18 06:20 06/08/18 06:20 - ECG O2 Sat by Pulse Oximetry: 97 (RA) Pulse Ox Interpretation: Normal Medical Decision Making Medical Decision Making: Time: 14:03 A/P: Suicidal ideation --Crisis evaluation --Will perform med workup if patient is to be admitted Pt with scabies and permethrin cream ordered and applied. Pt to be admitted. Labs, ekg, and xray unremarkable. pt medically cleared for evaluation by psychiatry. Scribe Attestation: Documented by Sydnie Mac, acting as a scribe for Randa Hernandez MD. Provider Scribe Attestation: All medical record entries made by the Scribe were at my direction and personally dictated by me. I have reviewed the chart and agree that the record accurately reflects my personal performance of the history, physical exam, medical decision making, and the department course for this patient. I have also personally directed, reviewed, and agree with the discharge instructions and disposition Disposition - Clinical Impression Clinical Impression: Depression, Depression as late effect of cerebrovascular accident (CVA), Scabies - Disposition Disposition Time: 13:20 Condition: STABLE
[2018-06-07 15:12] LABS: BASO # 0.1 K/uL (0.0-0.2); BASO % 1.1 % (0.0-2.0); EOS # 0.2 K/uL (0.0-0.7); EOS % 3.1 % (0.0-4.0); HEMOGLOBIN 13.1 g/dL (12.0-18.0); LYMPH # 2.5 K/uL (1.0-4.3); LYMPH % 41.6 % (20.0-40.0); MEAN CELL VOLUME 96.4 fl (80.0-94.0); MEAN CORPUSCULAR HGB CONC 33.2 g/dL (33.0-37.0); MEAN PLATELET VOLUME 8.5 fl (7.2-11.7); MONO # 0.4 K/uL (0.0-0.8); MONO % 6.6 % (0.0-10.0); NEUT # 2.9 K/uL (1.8-7.0); NEUT % 47.6 % (50.0-75.0); NRBC % 0.2 % (0.0-0.0); RBC 4.09 Mil/uL (4.40-5.90)
--- NOTE | 2018-06-07 15:25 | RAD ---
Date of service: 06/07/2018 HISTORY: possible admission COMPARISON: No prior. FINDINGS: LUNGS: No active pulmonary disease. PLEURA: No significant pleural effusion identified, no pneumothorax apparent. CARDIOVASCULAR: No aortic atherosclerotic calcification present. Normal cardiac size. No pulmonary vascular congestion. OSSEOUS STRUCTURES: Dextroscoliosis VISUALIZED UPPER ABDOMEN: Normal. OTHER FINDINGS: None. IMPRESSION: No active disease. Dextroscoliosis
[2018-06-07 15:28] LABS: BLOOD UREA NITROGEN 20 mg/dl (9-20); CALCIUM 9.6 mg/dL (8.4-10.2); GFR NON-AFRICAN AMERICAN > 60
[2018-06-07 15:42] LABS: BARBITURATES, UR NEGATIVE (NEGATIVE); BENZODIAZEPINES, UR NEGATIVE (NEGATIVE); OPIATES, UR NEGATIVE (NEGATIVE); PHENCYCLIDINE, UR NEGATIVE (NEGATIVE)
[2018-06-07] MEDS ORDERED: Permethrin 5% CREAM TOP STA (15:45)
[2018-06-07] MEDS ORDERED: Alum-Mag Hydrox-Simethicone Susp (30 mL) PO PRN (19:44)
[2018-06-07] MEDS ORDERED: Magnesium Hydroxide Susp 30 ml UD PO PRN (19:44)
[2018-06-07] MEDS ORDERED: DiphenhydrAMINE 50 mg/ml Inj IM PRN (19:44)
--- NOTE | 2018-06-07 20:17 | PCM.BM ---
<FreedmanRegisSpeedy - Last Filed: 06/07/18 20:15> Treatment Plan Problems - Problems identified on initial assessmt Hopelessness/Helplessness Date Initiated: 06/07/18 Time Initiated: 20:15 Assessment reference: NA Status: Active Feelings of Worthlessness Date Initiated: 06/07/18 Time Initiated: 20:16 Assessment reference: NA Status: Active Altered Sleep Patterns Date Initiated: 06/07/18 Time Initiated: 20:16 Assessment reference: NA Status: Active Medication Nonadherence Date Initiated: 06/07/18 Time Initiated: 20:16 Assessment reference: NA Status: Active Treatment assets and liabiliti Patient Assests: adapts well, cooperative, physically healthy, negotiates basic needs, cognitively intact Patient Liabilities: live alone, financial problems, relationship conflicts - Milieu Protocol Maintain good personal hygiene: every shift Encourage regular showers, every shift Remind patient to perform daily oral care, every shift Assist patient to perform ADL's Conduct patient checks and document Observation sheet: Q15 minutes Maintain personal safety: every shift Educate patient to report safety concerns to staff, every shift Monitor environment for contraband/sharps Medication safety: Monitor for expected outcome, potential side effects: every shift, Assess barriers to learning: every shift, Assess readiness for medication education: every shift <Wandy Canales - Last Filed: 06/08/18 11:17> - Diagnosis (1) Bipolar disorder Status: Acute Interventions: Medication management, Individual and group therapy, Psychoeducation 06/08/18 11:18 <Brooks Smith - Last Filed: 06/10/18 15:13> Family Contact Family involvement: Famliy/SO not involved Family contact: Patient declines to allow family contact at present Family contact name: Pt denied. - Goals for Treatment Patient goals for treatment: Pt offered no complaints, except that he needs help finding affordable housing. Discharge/Continuing Care - Education Needs Education Needs: Patient Medication, Patient Diagnosis/Disease Process, Patient Coping Skills, Patient Placement options, Patient Community resources, Patient Aftercare Safety Plan - Discharge Discharge Criteria: Tolerates medication w/o severe side effects, Free of Suicidal thoughts, Free of agitation, Ability to care for self, Reduction of target symptoms Discharge to:: Prison - Treatment Team Participation Patient/Family/SO Statement: 06/10/18 15:12 Pt seen in treatment team on 06/09/18. As per pt he is feeling much better due to his scabies being treated. Pt denied SI/HI and AVT hallucinations. Pt denied all acute psych complaints. Pt had concerns with housing and other concrete services. Discussed with Family/SO: No Was Patient/Family/SO present at Treatment Team Meeting: Yes
[2018-06-08 07:48] LABS: BASO # 0.1 K/uL (0.0-0.2); BASO % 0.9 % (0.0-2.0); EOS # 0.2 K/uL (0.0-0.7); EOS % 3.4 % (0.0-4.0); HEMOGLOBIN 13.9 g/dL (12.0-18.0); LYMPH # 1.8 K/uL (1.0-4.3); MEAN CELL VOLUME 97.8 fl (80.0-94.0); MEAN CORPUSCULAR HEMOGLOBIN 31.8 pg (27.0-31.0); MEAN CORPUSCULAR HGB CONC 32.5 g/dL (33.0-37.0); MEAN PLATELET VOLUME 8.8 fl (7.2-11.7); MONO # 0.5 K/uL (0.0-0.8); MONO % 7.4 % (0.0-10.0); NEUT # 3.6 K/uL (1.8-7.0); NEUT % 58.3 % (50.0-75.0); NRBC % 0.1 % (0.0-0.0); RBC 4.37 Mil/uL (4.40-5.90); WHITE BLOOD COUNT 6.2 K/uL (4.8-10.8)
[2018-06-08 08:17] LABS: T4 6.66 ug/dl (5.5-11.0)
[2018-06-08 08:18] LABS: LDL CHOLESTEROL 70 mg/dL (0-129)
[2018-06-08 08:25] LABS: ALB/GLOB RATIO 1.2 (1.0-2.1); ALBUMIN 3.8 g/dL (3.5-5.0); ALT/SGPT 19 U/L (21-72); AST/SGOT 18 U/L (17-59); BLOOD UREA NITROGEN 22 mg/dl (9-20); CALCIUM 9.2 mg/dL (8.4-10.2); GFR NON-AFRICAN AMERICAN > 60; HDL CHOLESTEROL 48 MG/DL (30-70)
--- NOTE | 2018-06-08 09:00 | PCM.PSYCH ---
Initial Psychiatric Evaluation - Initial Psychiatric Evaluation Type of Admission: Voluntary Legal Status: Capacity Chief Complaint (in patient's own words): "I was having stupid thoughts" (referring to suicidal ideations) Patient's Reaction to Hospitalization: HPI: 47 yo male w/ h/o Bipolar Disorder, recently admitted to [facility] from 05/24/18-05/30/18, presents with worsening depression, feelings of hopelessness, sleep/appetite disturbances, and suicidal ideation to lie on the train tracks. He reports that he has chronic memory deficits. He did not take his medications (Trileptal, Gabapentin, Trazodone) for one week. He denies AH/VH/HI. He denies substance abuse. PPHx: Multiple prior admissions; most recently to [facility] from 05/24/18- 05/30/18; has been non-compliant with medications for a week. PMHx: +Scabies ALL: NKDA FHx: Mother-Depression, Alcohol Use Disorder SHx: Homeless; denies current drug/etoh abuse; +smokes 15 cig/day Current Medications: Active Medications Generic Name Dose Route Start Last Admin Trade Name Freq PRN Reason Stop Dose Admin Acetaminophen 650 mg 06/07/18 19:44 Tylenol 325mg Tab PO Q4 PRN Pain, moderate (4-7) Al Hydrox/Mg Hydrox/Simethicone 30 ml 06/07/18 19:44 Maalox Plus 30 Ml PO Q4 PRN Dyspepsia Diphenhydramine HCl 50 mg 06/07/18 19:44 Benadryl IM Q6 PRN Extrapyramidal S/S Unable PO Diphenhydramine HCl 50 mg 06/07/18 19:44 Benadryl PO Q6 PRN Extrapyramidal Symptoms Diphenhydramine HCl 50 mg 06/07/18 19:59 Benadryl PO HS PRN Insomnia Haloperidol 5 mg 06/07/18 19:44 Haldol PO Q4 PRN Agitation Haloperidol Lactate 5 mg 06/07/18 19:44 Haldol IM Q4 PRN Agitation, Unable to Take PO Lorazepam 1 mg 06/07/18 19:44 Ativan IM Q8 PRN Anxiety/Agitation,Unable PO Lorazepam 1 mg 06/07/18 19:44 Ativan PO Q8 PRN Anxiety/Agitation Magnesium Hydroxide 30 ml 06/07/18 19:44 Milk Of Magnesia PO HS PRN Constipation Quetiapine Fumarate 50 mg 06/07/18 22:00 06/07/18 22:10 Seroquel PO Not Given HS KATIA Trazodone HCl 100 mg 06/07/18 19:41 Desyrel PO HS PRN Insomnia Past Psychiatric History - Past Psychiatric History Previous Treatment History: Inpatient Pertinent Medical Hx (Current Medical&Sleep Prob, Allergies): Allergies Allergy/AdvReac Type Severity Reaction Status Date / Time No Known Allergies Allergy Verified 05/30/18 18:51 DiphenhydrAMINE [Benadryl] 50 mg PO HS 06/07/18 QUEtiapine [SEROquel] 50 mg PO HS 06/07/18 traZODone [Desyrel] 100 mg PO HS PRN 06/07/18 Review of Systems - Neurological Neurological: Memory Loss - Psychiatric Psychiatric: As Per HPI, Abnormal Sleep Pattern, Anhedonia, Anxiety, Change in Appetite, Depression, Difficulty Concentrating, Hopelessness, Irritability, Memory Loss, Suicidal Ideation Mental Status Examination - Personal Presentation Personal Presentation: Looks stated age - Affect Affect: Constricted, Depressed - Motor Activity Motor Activity: Calm - Reliability in Providing Information Reliability in Providing Information: Fair - Speech Speech: Coherent - Mood Mood: Depressed, Anxious - Formal Thought Process Formal Thought Process: Circumstantial - Obsessions/Compulsions Obsessions: No Compulsions: No - Cognitive Functions Orientation: Person, Place, Situation, Time Sensorium: Alert Judgement: Intact, as evidence by: Insight regarding need for hospitalization Memory: Remote impaired as evidenced by: Inability to recall sig life events - Risk Risk: Suicidal - Strength & Assets Inventory Strength & Assets Inventory: Cooperative - Limitations Limitations: Other (Homelessness, Poverty) DSM 5 DX - DSM 5 DSM 5 Diagnosis: Bipolar Disorder - Recommended/Plan of Treatment Treatment Recommendations and Plan of Treatment: Bipolar Disorder -Admit to psychiatry unit -Individual and group therapy -Psychoeducation -Restart Trazodone, Trileptal and Gabapentin -Medicine consult -Psychoeducation -Nicotine patch -Disposition planning Projected ELOS: 5-10 days Discharge Plan and Discharge Criteria: Discharge when patient is psychiatrically stable - Smoking Cessation Smoking Cessation Initiated: Yes
[2018-06-08 10:00] LABS: SQUAMOUS EPITHIAL < 1 /hpf (0-5); URINE BILIRUBIN NEGATIVE (NEGATIVE); URINE BLOOD NEGATIVE (NEGATIVE); URINE CLARITY CLEAR (Clear); URINE COLOR YELLOW (YELLOW); URINE GLUCOSE (UA) NEG (NEGATIVE); URINE LEUKOCYTE ESTERASE NEG Leu/uL (Negative); URINE PROTEIN NEGATIVE (NEGATIVE); URINE UROBILINOGEN 0.2-1.0 mg/dL (0.2-1.0)
[2018-06-08] MEDS: Multivitamin With Minerals Tab PO SCH (13:25)
--- NOTE | 2018-06-08 14:01 | CARD ---
APPROVED REPORT Date of service: 06/07/2018 EKG Measurement Heart [id number] <Conclusion> Sinus bradycardia Otherwise normal ECG
--- NOTE | 2018-06-08 20:08 | CP.PCM.CON ---
History of Present Illness - History of Present Illness History of Present Illness: 47 yo male with history of Bipolar DO admitted to psyche unit because of depression and suicidal ideation. Review of Systems - Review of Systems All systems: reviewed and no additional remarkable complaints except (aside from those mentioned above, 12 point system review were negative by me) Past Patient History - Infectious Disease Hx of Infectious Diseases: None - Tetanus Immunizations Tetanus Immunization: Unknown - Past Medical History & Family History Past Medical History?: No - Past Social History Smoking Status: Heavy Smoker > 10 Cigarettes Daily Chewing Tobacco Use: No Cigar Use: No Alcohol: None Drugs: Denies Home Situation {Lives}: Homeless - CARDIAC Hx Cardiac Disorders: No - PULMONARY Hx Tuberculosis: No - NEUROLOGICAL HX Cerebrovascular Accident: No Hx Seizures: No - HEENT Hx HEENT Problems: No - RENAL Hx Chronic Kidney Disease: No - ENDOCRINE/METABOLIC Hx Endocrine Disorders: No - HEMATOLOGICAL/ONCOLOGICAL Hx Cancer: No Hx Human Immunodeficiency Virus (HIV): No - INTEGUMENTARY Hx Dermatological Problems: No - MUSCULOSKELETAL/RHEUMATOLOGICAL Hx Musculoskeletal Disorders: No - GASTROINTESTINAL Hx Gastrointestinal Disorders: No - GENITOURINARY/GYNECOLOGICAL Hx Sexually Transmitted Disorders: No - PSYCHIATRIC Hx Depression: Yes - SURGICAL HISTORY Hx Appendectomy: Yes - ANESTHESIA Hx Anesthesia: Yes Meds Allergies/Adverse Reactions: Allergies Allergy/AdvReac Type Severity Reaction Status Date / Time No Known Allergies Allergy Verified 06/08/18 10:14 - Medications Medications: Current Medications Acetaminophen (Tylenol 325mg Tab) 650 mg PO Q4 PRN PRN Reason: Pain, moderate (4-7) Al Hydrox/Mg Hydrox/Simethicone (Maalox Plus 30 Ml) 30 ml PO Q4 PRN PRN Reason: Dyspepsia Diphenhydramine HCl (Benadryl) 50 mg IM Q6 PRN PRN Reason: Extrapyramidal S/S Unable PO Diphenhydramine HCl (Benadryl) 50 mg PO Q6 PRN PRN Reason: Extrapyramidal Symptoms Diphenhydramine HCl (Benadryl) 50 mg PO HS PRN PRN Reason: Insomnia Gabapentin (Neurontin) 100 mg PO TID PRN PRN Reason: Anxiety Haloperidol (Haldol) 5 mg PO Q4 PRN PRN Reason: Agitation Haloperidol Lactate (Haldol) 5 mg IM Q4 PRN PRN Reason: Agitation, Unable to Take PO Lorazepam (Ativan) 1 mg IM Q8 PRN PRN Reason: Anxiety/Agitation,Unable PO Lorazepam (Ativan) 1 mg PO Q8 PRN PRN Reason: Anxiety/Agitation Magnesium Hydroxide (Milk Of Magnesia) 30 ml PO HS PRN PRN Reason: Constipation Multivitamins/Minerals (Therapeutic-M Tab) 1 tab PO DAILY [facility] Last Admin: 06/08/18 13:25 Dose: 1 tab Nicotine (Nicoderm Cq) 1 patch TD DAILY [facility] Last Admin: 06/08/18 13:24 Dose: 1 patch Oxcarbazepine (Trileptal) 150 mg PO BID [facility] Last Admin: 06/08/18 13:25 Dose: 150 mg Trazodone HCl (Desyrel) 100 mg PO HS [facility] Physical Exam - Constitutional Appears: No Acute Distress - Head Exam Head Exam: ATRAUMATIC - Eye Exam Eye Exam: absent: Scleral icterus - ENT Exam ENT Exam: Mucous Membranes Moist - Neck Exam Neck exam: Negative for: Meningismus - Respiratory Exam Respiratory Exam: absent: Rales, Rhonchi, Wheezes, Respiratory Distress - Cardiovascular Exam Cardiovascular Exam: REGULAR RHYTHM, +S1, +S2 - GI/Abdominal Exam GI & Abdominal Exam: Soft. absent: Tenderness - Rectal Exam Rectal Exam: Deferred - Extremities Exam Extremities exam: Negative for: pedal edema - Back Exam Back exam: NORMAL INSPECTION - Neurological Exam Neurological exam: Alert, Oriented x3 - Psychiatric Exam Psychiatric exam: Normal Affect - Skin Skin Exam: Rash (received permithrin lotion yesterday and rash accdg to patient appeared fading) Results - Vital Signs Recent Vital Signs: Last Vital Signs Temp 97.6 F 06/08/18 16:12 Pulse 71 06/08/18 16:12 Resp 18 06/08/18 16:12 BP 116/66 06/08/18 16:12 Pulse Ox 97 06/08/18 16:01 - Labs Result Diagrams: 06/08/18 06:20 06/08/18 06:20 Labs: Laboratory Results - last 24 hr 06/07/18 06/08/18 06/08/18 09:10 06:20 06:20 WBC 6.2 RBC 4.37 L Hgb 13.9 Hct 42.7 MCV 97.8 H MCH 31.8 H MCHC 32.5 L RDW 14.0 Plt Count 218 MPV 8.8 Neut % (Auto) 58.3 Lymph % (Auto) 30.0 [place] % (Auto) 7.4 Eos % (Auto) 3.4 Baso % (Auto) 0.9 Neut # (Auto) 3.6 Lymph # (Auto) 1.8 [place] # (Auto) 0.5 Eos # (Auto) 0.2 Baso # (Auto) 0.1 Sodium 138 Potassium 4.4 Chloride 107 Carbon Dioxide 26 Anion Gap 9 L BUN 22 H Creatinine 0.9 Est GFR ( Amer) > 60 Est GFR (Non-Af Amer) > 60 Random Glucose 87 Hemoglobin A1c Calcium 9.2 Total Bilirubin 0.5 AST 18 ALT 19 L D Alkaline Phosphatase 61 Total Protein 6.9 Albumin 3.8 Globulin 3.1 Albumin/Globulin Ratio 1.2 Triglycerides 65 Cholesterol 124 LDL Cholesterol Direct 70 HDL Cholesterol 48 Thyroxine (T4) 6.66 TSH 3rd Generation 1.29 Urine Color Yellow Urine Clarity Clear Urine pH 6.0 Ur Specific [place] 1.018 Urine Protein Negative Urine Glucose (UA) Neg Urine Ketones Negative Urine Blood Negative Urine Nitrate Negative Urine Bilirubin Negative Urine Urobilinogen 0.2-1.0 Ur Leukocyte Esterase Neg Urine RBC (Auto) 2 Urine Microscopic WBC < 1 Ur Squamous Epith Cells < 1 RPR 06/08/18 06/08/18 06:20 06:20 WBC RBC Hgb Hct MCV MCH MCHC RDW Plt Count MPV Neut % (Auto) Lymph % (Auto) [place] % (Auto) Eos % (Auto) Baso % (Auto) Neut # (Auto) Lymph # (Auto) [place] # (Auto) Eos # (Auto) Baso # (Auto) Sodium Potassium Chloride Carbon Dioxide Anion Gap BUN Creatinine Est GFR ( Amer) Est GFR (Non-Af Amer) Random Glucose Hemoglobin A1c 5.4 Calcium Total Bilirubin AST ALT Alkaline Phosphatase Total Protein Albumin Globulin Albumin/Globulin Ratio Triglycerides Cholesterol LDL Cholesterol Direct HDL Cholesterol Thyroxine (T4) TSH 3rd Generation Urine Color Urine Clarity Urine pH Ur Specific [place] Urine Protein Urine Glucose (UA) Urine Ketones Urine Blood Urine Nitrate Urine Bilirubin Urine Urobilinogen Ur Leukocyte Esterase Urine RBC (Auto) Urine Microscopic WBC Ur Squamous Epith Cells RPR Nonreactive Assessment & Plan (1) Depression Status: Acute Comment: psyche is managing (2) Scabies Status: Acute Comment: rash fading. received permithrin lotion yesterday
[2018-06-09] MEDS: Multivitamin With Minerals Tab PO SCH (08:46)
--- NOTE | 2018-06-09 11:43 | PCM.PYCHPN ---
Psychiatric Progress Note - Psychiatric Progress Note Patient seen today, length of contact: Pt evaluated, case discussed w/ staff, chart reviewed Patient Chief Complaint: "I was having stupid thoughts" (referring to suicidal ideations) Problems Identified/Issues Discussed: Patient reports that he continues to feel depressed, but denies acute suicidal ideation/plan/intent. He denies acute AH/VH/paranoia/delusions. He reports that his sleep and appetite are improving. No adverse effects to medications reported. Medication Change: No Medical Record Reviewed: Yes Consults ordered or reviewed: Medicine consult Mental Status Examination - Cognitive Function Orientation: Person, Place, Situation, Time Memory: Impaired - Mood Mood: Depressed - Affect Affect: Constricted, Depressed - Speech Speech: Appropriate - Formal Thought Process Formal Thought Process: Circumstantial Psychotic Thoughts and Behaviors: NO AH/VH/paranoia/delusions - Suicidal Ideation Suicidal Ideation: No - Homicidal Ideation Homicidal Ideation: No Goal/Treatment Plan - Goal/Treatment Plan Need for Continued Stay: Remain at risks for inpatient hospitalization, Severe depression anxiety Progress Toward Problem(s) and Goals/Treatment Plan: Bipolar Disorder -Individual and group therapy -Psychoeducation -Continue Trazodone, Trileptal and Gabapentin -Medicine consult -Psychoeducation -Nicotine patch -Disposition planning
[2018-06-10] MEDS: Multivitamin With Minerals Tab PO SCH (08:44)
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
[2018-06-11] MEDS: Multivitamin With Minerals Tab PO SCH (08:25)
--- NOTE | 2018-06-11 10:29 | PCM.PYCHPN ---
Psychiatric Progress Note - Psychiatric Progress Note Patient seen today, length of contact: Pt evaluated, case discussed w/ staff, chart reviewed Patient Chief Complaint: I am sad because I could not get benefits Problems Identified/Issues Discussed: pt evaluated continues to report feeling down because of his financial difficulties and current living situation, denied thought of self harm, denied perceptual disturbances, no reported side effects of medications DSM 5 Symptoms Update: bipolar disorder Medication Change: No Medical Record Reviewed: Yes Mental Status Examination - Cognitive Function Orientation: Person, Place, Situation, Time Memory: Impaired Attention: WNL Association: WNL Fund of Knowledge: Poor Decription of patient's judgement and insights: partial insight fair judgment - Mood Mood: Depressed - Affect Affect: Constricted, Depressed - Speech Speech: Appropriate - Formal Thought Process Formal Thought Process: Circumstantial - Suicidal Ideation Suicidal Ideation: No - Homicidal Ideation Homicidal Ideation: No Goal/Treatment Plan - Goal/Treatment Plan Need for Continued Stay: Remain at risks for inpatient hospitalization (will), Severe depression anxiety Progress Toward Problem(s) and Goals/Treatment Plan: continue current medications CBT group and supportive therapy
[2018-06-12] MEDS: Multivitamin With Minerals Tab PO SCH (09:00)
--- NOTE | 2018-06-12 10:41 | PCM.PYCHPN ---
Psychiatric Progress Note - Psychiatric Progress Note Patient seen today, length of contact: Pt evaluated, case discussed w/ staff, chart reviewed Patient Chief Complaint: Depression Problems Identified/Issues Discussed: Patient reports that he continues to feel depressed, but denies acute suicidal ideation/plan/intent. He continues to report poor sleep at night. He denies acute AH/VH/paranoia/delusions. No adverse effects to medications reported. Medication Change: Yes (Increase Trazodone) Medical Record Reviewed: Yes Consults ordered or reviewed: Medicine consult Mental Status Examination - Cognitive Function Orientation: Person, Place, Situation, Time Memory: Impaired Attention: WNL Association: WNL Fund of Knowledge: Poor Decription of patient's judgement and insights: Improving I/J - Mood Mood: Depressed - Affect Affect: Constricted, Depressed - Speech Speech: Appropriate - Formal Thought Process Formal Thought Process: Circumstantial Psychotic Thoughts and Behaviors: Denies AH/VH/paranoia/delusions - Suicidal Ideation Suicidal Ideation: No - Homicidal Ideation Homicidal Ideation: No Goal/Treatment Plan - Goal/Treatment Plan Need for Continued Stay: Remain at risks for inpatient hospitalization, Severe depression anxiety Progress Toward Problem(s) and Goals/Treatment Plan: Bipolar Disorder -Individual and group therapy -Psychoeducation -Increase Trazodone, -Continue Trileptal and Gabapentin -Medicine consult -Psychoeducation -Nicotine patch -Disposition planning Estimated Date of D/C: 06/14/18
[2018-06-13] MEDS: Multivitamin With Minerals Tab PO SCH (08:32)
--- NOTE | 2018-06-13 09:20 | PCM.PYCHPN ---
Psychiatric Progress Note - Psychiatric Progress Note Patient seen today, length of contact: Pt evaluated, case discussed w/ staff, chart reviewed Patient Chief Complaint: Depression Problems Identified/Issues Discussed: Patient reports that his mood is improving. He reports that he continues to have sleep disturbances. He denies acute AH/VH/paranoia/delusions. No adverse effects to medications reported. Medical Record Reviewed: Yes Consults ordered or reviewed: Medicine consult Mental Status Examination - Cognitive Function Orientation: Person, Place, Situation, Time Memory: Impaired Attention: WNL Association: WNL Decription of patient's judgement and insights: Improving I/J - Mood Mood: Depressed - Affect Affect: Constricted - Speech Speech: Appropriate - Formal Thought Process Formal Thought Process: Circumstantial Psychotic Thoughts and Behaviors: Denies AH/VH/paranoia/delusions - Suicidal Ideation Suicidal Ideation: No - Homicidal Ideation Homicidal Ideation: No Goal/Treatment Plan - Goal/Treatment Plan Need for Continued Stay: Remain at risks for inpatient hospitalization, Severe depression anxiety Progress Toward Problem(s) and Goals/Treatment Plan: Bipolar Disorder -Individual and group therapy -Psychoeducation -Increase Trazodone -Continue Trileptal -Stop Gabapentin; patient does not believe it is helpful and does not want to continue taking it -Medicine consult -Psychoeducation -Nicotine patch -Disposition planning- patient is improving clinically; likely discharge tomorrow if patient continues to improve Estimated Date of D/C: 06/14/18
[2018-06-14 06:04] VITALS: BP 95/60; PULSE 52; RESP 18; TEMP 97.2
[2018-06-14] MEDS: Multivitamin With Minerals Tab PO SCH (08:51)
--- NOTE | 2018-06-14 09:00 | PCM.PYCHDC ---
Mental Status Examination - Mental Status Examination Orientation: Person, Place, Situation, Time Mood: Neutral Affect: Broad Speech: Appropriate Attention: WNL Concentration: WNL Association: WNL Fund of Knowledge: WNL Formal Thought Process: No Impairment Description of patient's judgement and insight: Fair I/J Psychotic Thoughts and Behaviors: Denies AH/VH/paranoia/delusions Suicidal Ideation: No Current Homicidal Ideation?: No Discharge Summary - Discharge Note Reason for Hospitalization: HPI: 47 yo male w/ h/o Bipolar Disorder, recently admitted to [facility] ([facility] from 05/24/18-05/30/18, presents with worsening depression, feelings of hopelessness, sleep/appetite disturbances, and suicidal ideation to lie on the train tracks. He reports that he has chronic memory deficits. He did not take his medications (Trileptal, Gabapentin, Trazodone) for one week. He denies AH/VH/HI. He denies substance abuse. PPHx: Multiple prior admissions; most recently to [facility] ([facility] from 05/24/18- 05/30/18; has been non-compliant with medications for a week. PMHx: +Scabies ALL: NKDA FHx: Mother-Depression, Alcohol Use Disorder SHx: Homeless; denies current drug/etoh abuse; +smokes 15 cig/day Consultations:: List each consultation separately and include: 1. Reason for request. 2. Findings. 3. Follow-up Consultations: Medicine consult Summary of Hospital Course include:: 1. Description of specific treatment plan utilized for patients during their course of treatmen. 2. Summarize the time- course for resolution of acute symptoms and/or regressed behaviors. 3. Describe issues identified and worked on during hospitalization. 4. Describe medication utilized. 5. Describe medical problems identified and treated. 6. Reassessment of suicide risk Summary of Hospital Course: Patient was admitted to the psychiatry unit. Individual and group therapy were provided. Patient was stabilized on Trileptal and Trazodone. Psychoeducation provided on the importance of compliance with treatment and medications. Patient denies acute depression/anxiety/AH/VH/paranoia/delusions/SI/HI. He is currently psychiatrically stable for discharge at this time. - Diagnosis (1) Bipolar disorder Current Visit: Yes Status: Acute - Final Diagnosis (DSM 5) Condition upon Discharge: STABLE DSM 5: Bipolar Disorder Disposition: HOME/ ROUTINE Follow-up Treatment Plan: Bipolar Disorder -Continue Trileptal and Trazodone -Patient is psychiatrically stable for discharge -Patient informed to go the ER, call 911 or call his doctor if he has suicidal ideation or worsening depressive symptoms Prescriptions/Medication Reconciliation: OXcarbazepine [Trileptal] 300 mg PO BID #60 tab traZODone [Desyrel] 200 mg PO HS #60 tab - Smoking Cessation Smoking Cessation Medication prescribed: Yes Reason for not providing: Nicotine patch given during admission; pt declined outpatient prescription - Antipsychotic Medications Pt discharged on 2 or more routine antipsychotic medications: No
== END 2018-06-14 10:25 | disposition home or self-care (01) | DRG 885 ==
LOC: H.ER 12:17 → H.ERHOLD 16:04 → MERGE 16:04 → H.STEP 19:30
PROVIDERS: ADMIT Psychiatry & Neurology Psychiatry; ATTEND Psychiatry & Neurology Psychiatry
PROC: GZHZZZZ Group Psychotherapy (ICD-10-PCS; principal; 2018-06-07)
PROC: GZ58ZZZ Individual Psychotherapy, Cognitive-Behavioral (ICD-10-PCS; 2018-06-07)
PROC: GZ56ZZZ Individual Psychotherapy, Supportive (ICD-10-PCS; 2018-06-07)
DX: F31.9 Bipolar disorder, unspecified (principal); R45.851 Suicidal ideations; B86 Scabies; Z59.0 Homelessness; F17.210 Nicotine dependence, cigarettes, uncomplicated; F41.9 Anxiety disorder, unspecified

== ENCOUNTER 2018-06-14 22:17 | Inpatient (IN) | payer MEDICARE ==
--- NOTE | 2018-06-15 00:13 | ED PDOC ---
HPI: Psych/Substance Abuse Time Seen by Provider: 06/14/18 22:26 Chief Complaint (Nursing): Psychiatric Evaluation Chief Complaint (Provider): Psychiatric Evaluation History Per: Patient History/Exam Limitations: no limitations Onset/Duration Of Symptoms: Hrs (earlier today) Associated Symptoms: Suicidal Thoughts Additional Complaint(s): 47 y/o male who was discharged form the psychiatric unit here in [place] returns to the ED for evaluation of suicidal ideation. Patient was prescribed Depakot, Xanax, and Trazadone when was discharged earlier today. Patient states that prior to the discharge he was advised to go to the snf as he had a prior arrangement to stay at the snf. However, when he go there, there was no record of arrangements for him to stay there. Patient decided to leave the snf and talked to his girlfriend leading to a verbal altercation. Patient got frustrated from the exchange and now he feels suicidal. Patient feels as though he is taking all the necessary steps to get his life in order but when he does he always faces more struggles. Of not patient has had multiple suicidal attempts. Denies homicidal ideation or hallucinations. Past Medical History Reviewed: Historical Data, Nursing Documentation, Vital Signs Vital Signs: Last Vital Signs Temp 97.4 F L 06/14/18 22:21 Pulse 92 H 06/14/18 22:21 Resp 16 06/14/18 22:21 BP 137/91 H 06/14/18 22:21 Pulse Ox 97 06/14/18 22:21 - Medical History PMH: Depression Denies: Diabetes, Hepatitis, HIV, HTN, Chronic Kidney Disease, Seizures, Sexually Transmitted Disease - Surgical History Surgical History: Appendectomy - Family History Family History: States: Unknown Family Hx - Immunization History Hx Tetanus Toxoid Vaccination: No Hx Influenza Vaccination: No Hx Pneumococcal Vaccination: No - Home Medications Home Medications: Ambulatory Orders Medication Instructions Recorded Multimineral/Multivitamin 1 tab PO DAILY tab 06/13/18 [Therapeutic-M Tab] OXcarbazepine [Trileptal] 300 mg PO BID #60 tab 06/13/18 traZODone [Desyrel] 200 mg PO HS #60 tab 06/13/18 - Allergies Allergies/Adverse Reactions: Allergies Allergy/AdvReac Type Severity Reaction Status Date / Time No Known Allergies Allergy Verified 06/14/18 22:21 Review of Systems ROS Statement: Except As Marked, All Systems Reviewed And Found Negative Psych: Positive for: Suicidal ideation. Negative for: Psychosis Physical Exam - Reviewed Nursing Documentation Reviewed: Yes Vital Signs Reviewed: Yes - Physical Exam Appears: Positive for: Well, Non-toxic, No Acute Distress Head Exam: Positive for: ATRAUMATIC, NORMAL INSPECTION, NORMOCEPHALIC Skin: Positive for: Normal Color, Warm, DRY Eye Exam: Positive for: EOMI, Normal appearance, PERRL ENT: Positive for: Normal ENT Inspection Neck: Positive for: Normal, Painless ROM Cardiovascular/Chest: Positive for: Regular Rate, Rhythm. Negative for: Murmur Respiratory: Positive for: Normal Breath Sounds. Negative for: Respiratory Distress Gastrointestinal/Abdominal: Positive for: Normal Exam, Soft. Negative for: Tenderness Back: Positive for: Normal Inspection Extremity: Positive for: Normal ROM. Negative for: Pedal Edema, Deformity Neurologic/Psych: Positive for: Alert, Oriented. Negative for: Motor/Sensory Deficits - Laboratory Results Result Diagrams: 06/15/18 01:15 06/15/18 01:15 - ECG ECG: Positive for: Interpreted By Pr ECG Rhythm: Positive for: Sinus Rhythm. Negative for: ST/T Changes Rate: 65 O2 Sat by Pulse Oximetry: 97 (RA) Pulse Ox Interpretation: Normal Medical Decision Making Medical Decision Making: Time: 22:27 Impression: Psychiatric evaluation Initial Plan: * Crisis evaluation * 1:1 Observation Pt. evaluated by Gloria FORRESTER who discussed case with Dr. Tripp and requests that pt. be admitted. Labs, EKG, CXR ordered. [id number] During last ED visit pt. was dx with scabies and given elimite cream. Pt. was dc'd with the same clothes he arrived into the hospital with. Elimite cream given. -- Scribe Attestation: Documented by Jason Howard acting as a scribe for Dk E. Pormentilla, PA-C. Provider Scribe Attestation: All medical record entries made by the Scribe were at my direction and personally dictated by me. I have reviewed the chart and agree that the record accurately reflects my personal performance of the history, physical exam, medical decision making, and the department course for this patient. I have also personally directed, reviewed, and agree with the discharge instructions and disposition. Disposition - Clinical Impression Clinical Impression: Depression - Patient ED Disposition Is Patient to be Admitted: Yes - Disposition Disposition Time: 00:50 Condition: FAIR - Pt Status Changed To: Hospital Disposition Of: Inpatient - Admit Certification Admit to Inpatient:: After my assessment, the patient will require hospitalization for at least two midnights. This is because of the severity of symptoms shown, intensity of services needed, and/or the medical risk in this patient being treated as an outpatient.
[2018-06-15 01:48] LABS: BASO # 0.1 K/uL (0.0-0.2); BASO % 0.7 % (0.0-2.0); EOS # 0.1 K/uL (0.0-0.7); EOS % 1.2 % (0.0-4.0); LYMPH # 2.8 K/uL (1.0-4.3); LYMPH % 26.7 % (20.0-40.0); MEAN CORPUSCULAR HEMOGLOBIN 31.7 pg (27.0-31.0); MEAN CORPUSCULAR HGB CONC 33.4 g/dL (33.0-37.0); MEAN PLATELET VOLUME 8.5 fl (7.2-11.7); MONO # 0.8 K/uL (0.0-0.8); MONO % 7.3 % (0.0-10.0); NEUT # 6.8 K/uL (1.8-7.0); NEUT % 64.1 % (50.0-75.0); RBC 4.41 Mil/uL (4.40-5.90); RED CELL DISTRIBUTION WIDTH 14.4 % (11.5-14.5); WHITE BLOOD COUNT 10.7 K/uL (4.8-10.8)
[2018-06-15 01:59] LABS: ALB/GLOB RATIO 1.3 (1.0-2.1); ALBUMIN 4.2 g/dL (3.5-5.0); ALT/SGPT 51 U/L (21-72); AST/SGOT 37 U/L (17-59); BLOOD UREA NITROGEN 25 mg/dl (9-20); CALCIUM 9.6 mg/dL (8.4-10.2); GFR NON-AFRICAN AMERICAN > 60
[2018-06-15 02:13] LABS: URINE BILIRUBIN NEGATIVE (NEGATIVE); URINE BLOOD NEGATIVE (NEGATIVE); URINE CLARITY SLIGHTY-CLOUDY (Clear); URINE COLOR YELLOW (YELLOW); URINE GLUCOSE (UA) NEG (NEGATIVE); URINE LEUKOCYTE ESTERASE NEG Leu/uL (Negative); URINE PROTEIN NEGATIVE (NEGATIVE); URINE UROBILINOGEN 0.2-1.0 mg/dL (0.2-1.0)
[2018-06-15 02:13] LABS: BARBITURATES, UR NEGATIVE (NEGATIVE); BENZODIAZEPINES, UR NEGATIVE (NEGATIVE); OPIATES, UR NEGATIVE (NEGATIVE); PHENCYCLIDINE, UR NEGATIVE (NEGATIVE)
[2018-06-15] MEDS ORDERED: Permethrin 5% CREAM TOP STA (03:21)
[2018-06-15] MEDS ORDERED: Magnesium Hydroxide Susp 30 ml UD PO PRN (04:49)
[2018-06-15] MEDS ORDERED: DiphenhydrAMINE 50 mg/ml Inj IM PRN (04:49)
[2018-06-15] MEDS ORDERED: Alum-Mag Hydrox-Simethicone Susp (30 mL) PO PRN (04:49)
[2018-06-15 05:02] VITALS: O2SAT 96
--- NOTE | 2018-06-15 05:08 | PCM.BM ---
<Rita Brown - Last Filed: 06/16/18 06:12> Treatment Plan Problems - Problems identified on initial assessmt hopelessness/helplessness Date Initiated: 06/15/18 Time Initiated: 05:00 Assessment reference: NA Status: Active suicidal ideation Date Initiated: 06/15/18 Time Initiated: 05:00 Assessment reference: NA Status: Active Treatment assets and liabiliti Patient Assests: adapts well, cooperative, resourceful, self-reliant, ADL independent, physically healthy, negotiates basic needs, good past tx response, cognitively intact, good interpersonal skills Patient Liabilities: live alone, financial problems, poor support system, relationship conflicts - Milieu Protocol Maintain good personal hygiene: daily Encourage regular showers, other Remind patient to perform daily oral care Conduct patient checks and document Observation sheet: Q15 minutes Maintain personal safety: daily Educate patient to report safety concerns to staff, every shift Monitor environment for contraband/sharps Medication safety: Monitor for expected outcome, potential side effects: every shift, Assess barriers to learning: every shift, Assess readiness for medication education: every shift <Aleyda Beasley - Last Filed: 06/16/18 16:09> Treatment assets and liabiliti Patient Assests: adapts well, cooperative, resourceful, self-reliant, ADL independent, physically healthy Patient Liabilities: live alone ( Pt. reports homelessness x 1 year. Pt. currently working with outsole caser and girlfriend (also homeless) to secure stable housing. Housing status identified as primary stressor.), poor support system (t. reported limited family/social supports. Pt. identifies girlfriend as primary support but does report significant discord. ), relationship conflicts (Pt. reports limited communication with adult daughter, father, and brother. ), substance abuse (Pt. reports hx of ETOH abuse but denies recent/current ETOH/illicit substance abuse.), medical problems (Pt. recently txed for scabies. Pt. reports hx of head trauma resulting in memory lapses. Please see H&P), imparied memory (Pt. reports hx of head trauma resulting in memory lapses. Please see H&P), legal issue ( Pt. reports hx of arrests for DUI and simple assault. Pt. denies outstanding legal issues.) Family Contact Family involvement: Famliy/SO not involved Family contact: Patient declines to allow family contact at present - Goals for Treatment Patient goals for treatment: Patient to continue stabilization on 3NP through medication management and group/supportive therapy to address sxs of depression (motivation, energy, goal oriented thought) and eliminate SI. Patient to be encouraged to attend groups regularly to promote self-awareness, impulse control, and improve insight, compliance, coping skills and self-esteem. Patient to be provided with referral for appropriate level of aftercare to reduce risk of future hospitalizations and ensure safety in the community. Pt identified getting back on medications and following up with aftercare recommendations as primary tx goal. Discharge/Continuing Care - Education Needs Education Needs: Patient Medication, Patient Diagnosis/Disease Process, Patient Coping Skills, Patient Anger Management skills, Patient Community resources, Patient Aftercare Safety Plan - Discharge Discharge Criteria: Tolerates medication w/o severe side effects, Free of Suicidal thoughts, Free of agitation, Normal sleep pattern, Ability to care for self Discharge to:: Assisted - Treatment Team Participation Patient/Family/SO Statement: 06/16/18 16:12 Patient was brought into tx team today to discuss progress on 3NP and tx goals. Patient presented as irritable and demanding, expressing frustration over not being able to shave immediately after asking staff for assistance. Pt. expressing Im going to jump out of this window if I dont shave. Pt. assured that request is being prioritized but cannot be completed at a moments notice. Pt. reporting that he did not mean he would literally jump out of a window for something so stupid. Tx team emphasized that all suicidal statements will be taken seriously to ensure pts safety and that irritability/frustration tolerance can be a good indicator of pts mood/mental status. Effective communication and staff availability discussed. Pt. discharged focused and perseverating on housing. Critical Care Specialist explained that it is in pts best interest to continue to work with [facility] secure housing, as housing resources are not available on short-term voluntary units such as 3. Anticipated discharge of 2/4 discussed. Benefits of pt being discharged right before intake appointment with [facility] discussed. Pt. agreeable. Discussed with Family/SO: No Was Patient/Family/SO present at Treatment Team Meeting: Yes <Lizandro Tripp - Last Filed: 06/19/18 09:51> - Diagnosis (1) Depression Status: Acute Interventions: psychotherapy, pharmacotherapy 06/19/18 09:51
--- NOTE | 2018-06-15 09:48 | CP.PCM.CON ---
History of Present Illness - History of Present Illness History of Present Illness: 48 yo male discharged yesterday from psyche unit readmitted today for similar reason of suicidal ideation. Review of Systems - Review of Systems All systems: reviewed and no additional remarkable complaints except (aside from those mentioned above, 12 point system review were negative by me) Past Patient History - Infectious Disease Hx of Infectious Diseases: None - Tetanus Immunizations Tetanus Immunization: Unknown - Past Medical History & Family History Past Medical History?: No - Past Social History Smoking Status: Heavy Smoker > 10 Cigarettes Daily Chewing Tobacco Use: No Cigar Use: No Alcohol: None Drugs: Denies Home Situation {Lives}: Homeless - CARDIAC Hx Cardiac Disorders: No Hx Hypertension: No - PULMONARY Hx Respiratory Disorders: No Hx Tuberculosis: No - NEUROLOGICAL Hx Neurological Disorder: No Hx Seizures: No - HEENT Hx HEENT Problems: No - RENAL Hx Chronic Kidney Disease: No - ENDOCRINE/METABOLIC Hx Endocrine Disorders: No - HEMATOLOGICAL/ONCOLOGICAL Hx Blood Disorders: No Hx Human Immunodeficiency Virus (HIV): No - INTEGUMENTARY Hx Dermatological Problems: No - MUSCULOSKELETAL/RHEUMATOLOGICAL Hx Musculoskeletal Disorders: No - GASTROINTESTINAL Hx Gastrointestinal Disorders: No - GENITOURINARY/GYNECOLOGICAL Hx Sexually Transmitted Disorders: No - PSYCHIATRIC Hx Substance Use: No - SURGICAL HISTORY Hx Appendectomy: Yes - ANESTHESIA Hx Anesthesia: Yes Hx Anesthesia Reactions: No Meds Allergies/Adverse Reactions: Allergies Allergy/AdvReac Type Severity Reaction Status Date / Time No Known Allergies Allergy Verified 06/14/18 22:21 - Medications Medications: Current Medications Acetaminophen (Tylenol 325mg Tab) 650 mg PO Q4 PRN PRN Reason: pain (4-7) Al Hydrox/Mg Hydrox/Simethicone (Maalox Plus 30 Ml) 30 ml PO Q4 PRN PRN Reason: Dyspepsia Diphenhydramine HCl (Benadryl) 50 mg IM Q6 PRN PRN Reason: Extrapyramidal S/S Unable PO Diphenhydramine HCl (Benadryl) 50 mg PO Q6 PRN PRN Reason: Extrapyramidal Symptoms Haloperidol (Haldol) 5 mg PO Q4 PRN PRN Reason: Agitation Haloperidol Lactate (Haldol) 5 mg IM Q4 PRN PRN Reason: Agitation, Unable to Take PO Lorazepam (Ativan) 2 mg IM Q4 PRN PRN Reason: Anxiety/Agitation,Unable PO Magnesium Hydroxide (Milk Of Magnesia) 30 ml PO HS PRN PRN Reason: Constipation Physical Exam - Constitutional Appears: No Acute Distress - Head Exam Head Exam: ATRAUMATIC - Eye Exam Eye Exam: absent: Scleral icterus - ENT Exam ENT Exam: Mucous Membranes Moist - Neck Exam Neck exam: Negative for: Meningismus - Respiratory Exam Respiratory Exam: absent: Rales, Rhonchi, Wheezes, Respiratory Distress - Cardiovascular Exam Cardiovascular Exam: REGULAR RHYTHM, +S1, +S2 - GI/Abdominal Exam GI & Abdominal Exam: Soft. absent: Tenderness - Rectal Exam Rectal Exam: Deferred - Extremities Exam Extremities exam: Negative for: pedal edema - Back Exam Back exam: NORMAL INSPECTION - Neurological Exam Neurological exam: Alert, Oriented x3 - Psychiatric Exam Psychiatric exam: Normal Affect - Skin Skin Exam: Dry, Intact Results - Vital Signs Recent Vital Signs: Last Vital Signs Temp 97.6 F 06/15/18 09:38 Pulse 65 06/15/18 09:38 Resp 19 06/15/18 09:38 BP 119/76 06/15/18 09:38 Pulse Ox 96 06/15/18 03:50 - Labs Result Diagrams: 06/15/18 01:15 06/15/18 01:15 Labs: Laboratory Results - last 24 hr 06/15/18 06/15/18 06/15/18 01:05 01:15 01:15 WBC 10.7 D RBC 4.41 Hgb 14.0 Hct 41.9 MCV 95.0 H D MCH 31.7 H MCHC 33.4 RDW 14.4 Plt Count 196 MPV 8.5 Neut % (Auto) 64.1 Lymph % (Auto) 26.7 [place] % (Auto) 7.3 Eos % (Auto) 1.2 Baso % (Auto) 0.7 Neut # (Auto) 6.8 Lymph # (Auto) 2.8 [place] # (Auto) 0.8 Eos # (Auto) 0.1 Baso # (Auto) 0.1 Sodium 140 Potassium 3.8 Chloride 100 Carbon Dioxide 28 Anion Gap 16 BUN 25 H Creatinine 0.9 Est GFR ( Amer) > 60 Est GFR (Non-Af Amer) > 60 Random Glucose 94 Calcium 9.6 Total Bilirubin 0.2 AST 37 ALT 51 Alkaline Phosphatase 73 Total Protein 7.4 Albumin 4.2 Globulin 3.2 Albumin/Globulin Ratio 1.3 Urine Color Urine Clarity Urine pH Ur Specific [place] Urine Protein Urine Glucose (UA) Urine Ketones Urine Blood Urine Nitrate Urine Bilirubin Urine Urobilinogen Ur Leukocyte Esterase Urine RBC (Auto) Urine Microscopic WBC Urine Opiates Screen Negative Urine Methadone Screen Negative Ur Barbiturates Screen Negative Ur Phencyclidine Scrn Negative Ur Amphetamines Screen Negative U Benzodiazepines Scrn Negative U Oth Cocaine Metabols Negative U Cannabinoids Screen Negative Alcohol, Quantitative < 10 06/15/18 01:15 WBC RBC Hgb Hct MCV MCH MCHC RDW Plt Count MPV Neut % (Auto) Lymph % (Auto) [place] % (Auto) Eos % (Auto) Baso % (Auto) Neut # (Auto) Lymph # (Auto) [place] # (Auto) Eos # (Auto) Baso # (Auto) Sodium Potassium Chloride Carbon Dioxide Anion Gap BUN Creatinine Est GFR ( Amer) Est GFR (Non-Af Amer) Random Glucose Calcium Total Bilirubin AST ALT Alkaline Phosphatase Total Protein Albumin Globulin Albumin/Globulin Ratio Urine Color Yellow Urine Clarity Slighty-cloudy Urine pH 7.0 Ur Specific [place] 1.027 Urine Protein Negative Urine Glucose (UA) Neg Urine Ketones Negative Urine Blood Negative Urine Nitrate Negative Urine Bilirubin Negative Urine Urobilinogen 0.2-1.0 Ur Leukocyte Esterase Neg Urine RBC (Auto) 7 H Urine Microscopic WBC < 1 Urine Opiates Screen Urine Methadone Screen Ur Barbiturates Screen Ur Phencyclidine Scrn Ur Amphetamines Screen U Benzodiazepines Scrn U Oth Cocaine Metabols U Cannabinoids Screen Alcohol, Quantitative Assessment & Plan (1) Suicidal ideation Status: Acute Comment: psyche is managing again.
--- NOTE | 2018-06-15 11:00 | PCM.PSYCH ---
Initial Psychiatric Evaluation - Initial Psychiatric Evaluation Type of Admission: Voluntary Legal Status: Capacity Chief Complaint (in patient's own words): I feel hopeless about my situation History of Present Illness and Precipitating Events: pt is 47 ys old male with previous diagnosis of bipolar disorder discharged recently from hospital, feeling depressed and hopeless about his living situation being homeless, started having suicidal ideation with plan to overdose on medications and lie on the railroad tracks on the unit pt depressed irritable, reporting passive suicidal ideation without active plan on the unit denied perceptual disturbances Current Medications: Active Medications Generic Name Dose Route Start Last Admin Trade Name Freq PRN Reason Stop Dose Admin Acetaminophen 650 mg 06/15/18 04:49 Tylenol 325mg Tab PO Q4 PRN pain (4-7) Al Hydrox/Mg Hydrox/Simethicone 30 ml 06/15/18 04:49 Maalox Plus 30 Ml PO Q4 PRN Dyspepsia Diphenhydramine HCl 50 mg 06/15/18 04:49 Benadryl IM Q6 PRN Extrapyramidal S/S Unable PO Diphenhydramine HCl 50 mg 06/15/18 04:49 Benadryl PO Q6 PRN Extrapyramidal Symptoms Haloperidol 5 mg 06/15/18 04:49 Haldol PO Q4 PRN Agitation Haloperidol Lactate 5 mg 06/15/18 04:49 Haldol IM Q4 PRN Agitation, Unable to Take PO Lorazepam 2 mg 06/15/18 04:49 Ativan IM Q4 PRN Anxiety/Agitation,Unable PO Magnesium Hydroxide 30 ml 06/15/18 04:49 Milk Of Magnesia PO HS PRN Constipation Past Psychiatric History - Past Psychiatric History Explanation of prior treatment: multiple hospitalizations/ partial compliance History of ETOH/Drug Use: denied History of Family Illness: mother hx of depression Pertinent Medical Hx (Current Medical&Sleep Prob, Allergies): Allergies Allergy/AdvReac Type Severity Reaction Status Date / Time No Known Allergies Allergy Verified 06/14/18 22:21 Multimineral/Multivitamin [Therapeutic-M Tab] 1 tab PO DAILY tab 06/13/18 OXcarbazepine [Trileptal] 300 mg PO BID #60 tab 06/13/18 traZODone [Desyrel] 200 mg PO HS #60 tab 06/13/18 Mental Status Examination - Personal Presentation Personal Presentation: Looks stated age - Affect Affect: Constricted, Depressed - Motor Activity Motor Activity: Psychomotor Agitation - Reliability in Providing Information Reliability in Providing Information: Fair - Speech Speech: Relevant - Mood Mood: Depressed, Anxious - Formal Thought Process Formal Thought Process: Circumstantial - Obsessions/Compulsions Obsessions: No Compulsions: No - Cognitive Functions Orientation: Person, Place, Situation, Time Sensorium: Alert Attention/Concentration: Easily distracted Judgement: Imparied, as evidence by: Poor judgement - Risk Risk: Suicidal, Diminished functioning - Strength & Assets Inventory Strength & Assets Inventory: Life experience - Limitations Additional comments: living situation DSM 5 DX - DSM 5 DSM 5 Diagnosis: bipolar disorder depressed - Recommended/Plan of Treatment Treatment Recommendations and Plan of Treatment: start trileptal 300mg bid trazodone 200mg qhs group and supportive therapy
--- NOTE | 2018-06-15 11:19 | CARD ---
APPROVED REPORT Date of service: 06/15/2018 EKG Measurement Heart [id number] <Conclusion> Sinus rhythm with fusion complexes Otherwise normal ECG
--- NOTE | 2018-06-15 12:52 | RAD ---
Date of service: 06/15/2018 HISTORY: clearance COMPARISON: Comparison chest 06/07/2018. FINDINGS: LUNGS: Hyperinflation consistent with chronic changes of COPD. No focal consolidation. PLEURA: No significant pleural effusion identified, no pneumothorax apparent. CARDIOVASCULAR: There appears to be minor aortic atherosclerotic calcification present. Normal cardiac size. No pulmonary vascular congestion. OSSEOUS STRUCTURES: Mild dextroscoliotic deformity unchanged VISUALIZED UPPER ABDOMEN: Normal. OTHER FINDINGS: None. IMPRESSION: Hyperinflation consistent with COPD. No acute consolidation. Consistent with COPD
[2018-06-16 11:33] VITALS: RESP 18
--- NOTE | 2018-06-16 15:11 | PCM.PYCHPN ---
Psychiatric Progress Note - Psychiatric Progress Note Patient seen today, length of contact: pt evaluated disussed with team chart reviewed Patient Chief Complaint: I need help with rn social services Problems Identified/Issues Discussed: pt evaluated with treatment team, lcontinues to be irritable and anxious, related that to current living situation and financial stressors, CBT provided also discussed refferal to case management on discharge, no poonam effects of medications denied current active thoughts of self harm on the unit Medical Problems: multiple hospitalizations/ partial compliance DSM 5 Symptoms Update: bipolar disorder Medication Change: No Medical Record Reviewed: Yes Mental Status Examination - Cognitive Function Orientation: Person, Place, Situation, Time Attention: WNL Concentration: WNL Association: WNL Fund of Knowledge: Poor Decription of patient's judgement and insights: partial insight poor judgment - Mood Mood: Depressed, Anxious - Affect Affect: Constricted, Depressed - Speech Speech: Loud, Pressured - Formal Thought Process Formal Thought Process: Circumstantial - Suicidal Ideation Suicidal Ideation: No - Homicidal Ideation Homicidal Ideation: No Goal/Treatment Plan - Goal/Treatment Plan Need for Continued Stay: Severe depression anxiety, Discharge may exacerbated symptoms Progress Toward Problem(s) and Goals/Treatment Plan: trileptal 300mg bid trazodone 200mg qhs group and supportive therapy
--- NOTE | 2018-06-17 11:45 | PCM.PYCHPN ---
Psychiatric Progress Note - Psychiatric Progress Note Patient seen today, length of contact: pt evaluated disussed with team chart reviewed Patient Chief Complaint: I need to contact transition social worker Problems Identified/Issues Discussed: pt evaluated continues to be irritable and anxious, related that to current living situation and financial difficulties CBT provided also discussed refferal to case management on discharge, no side effects of medications denied current active thoughts of self harm on the unit Medical Problems: multiple hospitalizations/ partial compliance Medication Change: No Medical Record Reviewed: Yes Mental Status Examination - Cognitive Function Orientation: Person, Place, Situation, Time Attention: WNL Concentration: WNL Association: WNL Fund of Knowledge: Poor Decription of patient's judgement and insights: partial insight poor judgment - Mood Mood: Depressed, Anxious - Affect Affect: Constricted, Depressed - Speech Speech: Loud, Pressured - Formal Thought Process Formal Thought Process: Circumstantial - Suicidal Ideation Suicidal Ideation: No - Homicidal Ideation Homicidal Ideation: No Goal/Treatment Plan - Goal/Treatment Plan Need for Continued Stay: Severe depression anxiety, Discharge may exacerbated symptoms Progress Toward Problem(s) and Goals/Treatment Plan: trileptal 300mg bid trazodone 200mg qhs group and supportive therapy
--- NOTE | 2018-06-18 07:41 | PCM.PYCHPN ---
Psychiatric Progress Note - Psychiatric Progress Note Patient seen today, length of contact: Pt evaluated, case discussed w/ team, chart reviewed Patient Chief Complaint: Anxiety Problems Identified/Issues Discussed: Patient reports that his mood is improving. He denies acute depression, but continues to feel anxious and stressed due to social stressors including housing. NO AH/VH/SI/HI. No adverse effects to medications reported. Medication Change: No Medical Record Reviewed: Yes Mental Status Examination - Cognitive Function Orientation: Person, Place, Situation, Time Attention: WNL Concentration: WNL Association: WNL Fund of Knowledge: Poor Decription of patient's judgement and insights: Improving I/J - Mood Mood: Anxious - Affect Affect: Constricted - Speech Speech: Appropriate - Formal Thought Process Formal Thought Process: Circumstantial Psychotic Thoughts and Behaviors: Denies AH/VH/paranoia/delusions - Suicidal Ideation Suicidal Ideation: No - Homicidal Ideation Homicidal Ideation: No Goal/Treatment Plan - Goal/Treatment Plan Need for Continued Stay: Severe depression anxiety, Discharge may exacerbated symptoms Progress Toward Problem(s) and Goals/Treatment Plan: Bipolar Disorder -Continue current medications -Disposition planning
[2018-06-18 19:05] VITALS: TEMP 98.1
[2018-06-19 08:40] VITALS: BP 111/69; PULSE 68
--- NOTE | 2018-06-19 09:59 | PCM.PYCHDC ---
Mental Status Examination - Mental Status Examination Orientation: Person, Place, Situation, Time Mood: Neutral Affect: Broad Speech: Appropriate Concentration: WNL Association: WNL Fund of Knowledge: WNL Formal Thought Process: Circumstantial Description of patient's judgement and insight: partial insight poor judgment Psychotic Thoughts and Behaviors: pt denied perceptual disturbances , non elicited Suicidal Ideation: No Current Homicidal Ideation?: No Discharge Summary - Discharge Note Reason for Hospitalization: pt is 47 ys old male with previous diagnosis of bipolar disorder discharged recently from hospital, feeling depressed and hopeless about his living situation being homeless, started having suicidal ideation with plan to overdose on medications and lie on the railroad tracks on the unit pt depressed irritable, reporting passive suicidal ideation without active plan on the unit denied perceptual disturbances Consultations:: List each consultation separately and include: 1. Reason for request. 2. Findings. 3. Follow-up Summary of Hospital Course include:: 1. Description of specific treatment plan utilized for patients during their course of treatmen. 2. Summarize the time- course for resolution of acute symptoms and/or regressed behaviors. 3. Describe issues identified and worked on during hospitalization. 4. Describe medication utilized. 5. Describe medical problems identified and treated. 6. Reassessment of suicide risk Summary of Hospital Course: pt on admission was started on trileptal and trazodone CBT, group and supportive therapy started . no reported side effects of medications director of social media marketing initiated referral to case management pt on discharge mental status was stable, denied any current suicidal or homicidal ideation denied perceptual disturbances - Diagnosis (1) Depression Current Visit: Yes Status: Acute - Final Diagnosis (DSM 5) Condition upon Discharge: FAIR Disposition: HOME/ ROUTINE Follow-up Treatment Plan: trileptal 300mg bid trazodone 200mg qhs group and supportive therapy Prescriptions/Medication Reconciliation: RX: OXcarbazepine [Trileptal] 300 mg PO BID 30 Days #60 tab RX: traZODone [Desyrel] 200 mg PO HS 30 Days #60 tab - Antipsychotic Medications Pt discharged on 2 or more routine antipsychotic medications: No
== END 2018-06-19 11:30 | disposition home or self-care (01) | DRG 885 ==
LOC: H.ER 22:17 → H.ERHOLD 06-15 02:21 → H.PSYCH 06-15 04:45
PROVIDERS: ADMIT Psychiatry & Neurology Psychiatry; ATTEND Psychiatry & Neurology Psychiatry
PROC: GZHZZZZ Group Psychotherapy (ICD-10-PCS; principal; 2018-06-15)
PROC: GZ51ZZZ Individual Psychotherapy, Behavioral (ICD-10-PCS; 2018-06-15)
DX: F31.9 Bipolar disorder, unspecified (principal); R45.851 Suicidal ideations; F41.9 Anxiety disorder, unspecified; Z81.8 Family history of other mental and behavioral disorders; F17.210 Nicotine dependence, cigarettes, uncomplicated; Z90.49 Acquired absence of other specified parts of digestive tract; Z59.0 Homelessness; Z79.899 Other long term (current) drug therapy

== ENCOUNTER 2018-06-24 16:26 | Emergency (ER) | payer MEDICARE ==
[2018-06-24 16:32] VITALS: BP 111/89; PULSE 78; TEMP 97.7; O2SAT 100
--- NOTE | 2018-06-24 16:51 | ED PDOC ---
HPI: Psych/Substance Abuse Time Seen by Provider: 06/24/18 16:46 Chief Complaint (Nursing): Psychiatric Evaluation Chief Complaint (Provider): Psychiatric Evaluation History Per: Patient History/Exam Limitations: no limitations Onset/Duration Of Symptoms: Days Current Symptoms Are (Timing): Still Present Suicide/Self Injury Attempted (Context): None Additional Complaint(s): 47 y/o homeless male with a history of psychiatric disorders presents to the ED for psychiatric evaluation. 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 Patient reports he cannot chicken picker medications after anyone touches them. Patient presents to day with suicidal ideation and a plan to overdose on Trazadone. Of note, patient does not have any Trazadone. PMD: no provider Past Medical History Reviewed: Historical Data, Nursing Documentation, Vital Signs Vital Signs: Last Vital Signs Temp 97.7 F 06/24/18 16:31 Pulse 78 06/24/18 16:31 Resp BP 111/89 06/24/18 16:31 Pulse Ox 100 06/24/18 16:31 - Medical History PMH: Bipolar Disorder, Depression Denies: Diabetes, Hepatitis, HIV, HTN, Chronic Kidney Disease, Seizures, Sexually Transmitted Disease - Surgical History Surgical History: Appendectomy - Family History Family History: States: Unknown Family Hx - Living Arrangements Living Arrangements: Other (homeless) - Immunization History Hx Tetanus Toxoid Vaccination: No Hx Influenza Vaccination: No Hx Pneumococcal Vaccination: No - Home Medications Home Medications: Ambulatory Orders Medication Instructions Recorded Multimineral/Multivitamin 1 tab PO DAILY tab 06/13/18 [Therapeutic-M Tab] OXcarbazepine [Trileptal] 300 mg PO BID 30 Days #60 tab 06/19/18 traZODone [Desyrel] 200 mg PO HS 30 Days #60 tab 06/19/18 - Allergies Allergies/Adverse Reactions: Allergies Allergy/AdvReac Type Severity Reaction Status Date / Time No Known Allergies Allergy Verified 06/14/18 22:21 Review of Systems ROS Statement: Except As Marked, All Systems Reviewed And Found Negative Psych: Positive for: Suicidal ideation Physical Exam - Reviewed Nursing Documentation Reviewed: Yes Vital Signs Reviewed: Yes - Physical Exam Appears: Positive for: No Acute Distress Head Exam: Positive for: ATRAUMATIC, NORMOCEPHALIC Skin: Positive for: Normal Color, Warm, Dry Eye Exam: Positive for: Normal appearance, EOMI, PERRL Neck: Positive for: Normal, Painless ROM Cardiovascular/Chest: Positive for: Regular Rate, Rhythm. Negative for: Murmur Respiratory: Positive for: Normal Breath Sounds. Negative for: Respiratory Distress Gastrointestinal/Abdominal: Positive for: Normal Exam, Soft. Negative for: Tenderness Extremity: Positive for: Normal ROM. Negative for: Deformity Neurologic/Psych: Positive for: Alert, Oriented. Negative for: Motor/Sensory Deficits - Laboratory Results Result Diagrams: 06/24/18 17:00 06/24/18 17:00 - ECG O2 Sat by Pulse Oximetry: 100 (RA) Pulse Ox Interpretation: Normal - Progress ED Course And Treament: Patient upset he is not getting a bed or trazadone for sleep, states he is not suicidal and would like to catch a train. Seen by crisis d/w Dr. Canales d/c home Diagnosis Depression Medical Decision Making Medical Decision Making: Time: 1645 Plan: -- Alcohol Serum -- CMP -- Urine Drug Screen -- Valproic Acid -- CBC with Differential -- Urinalysis Scribe Attestation: Documented by Floyd Hernández, acting as a scribe Belem Pride PA-C. Provider Scribe Attestation: All medical record entries made by the Scribe were at my direction and personally dictated by me. I have reviewed the chart and agree that the record accurately reflects my personal performance of the history, physical exam, medical decision making, and the department course for this patient. I have also personally directed, reviewed, and agree with the discharge instructions and disposition. Disposition - Clinical Impression Clinical Impression: Depression - Patient ED Disposition Is Patient to be Admitted: No - Disposition Disposition: Routine/Home Disposition Time: 20:30 Condition: FAIR Instructions: Depression
[2018-06-24 17:18] LABS: BASO % 0.3 % (0.0-2.0); EOS # 0.2 K/uL (0.0-0.7); EOS % 2.9 % (0.0-4.0); HEMOGLOBIN 13.1 g/dL (12.0-18.0); LYMPH # 2.3 K/uL (1.0-4.3); LYMPH % 38.2 % (20.0-40.0); MEAN CORPUSCULAR HEMOGLOBIN 32.6 pg (27.0-31.0); MEAN PLATELET VOLUME 8.5 fl (7.2-11.7); MONO # 0.4 K/uL (0.0-0.8); MONO % 6.9 % (0.0-10.0); NEUT # 3.1 K/uL (1.8-7.0); NEUT % 51.7 % (50.0-75.0); RBC 4.02 Mil/uL (4.40-5.90); RED CELL DISTRIBUTION WIDTH 14.2 % (11.5-14.5)
[2018-06-24 17:20] LABS: SQUAMOUS EPITHIAL < 1 /hpf (0-5); URINE BILIRUBIN NEGATIVE (NEGATIVE); URINE BLOOD NEGATIVE (NEGATIVE); URINE CLARITY CLEAR (Clear); URINE COLOR YELLOW (YELLOW); URINE GLUCOSE (UA) NEG (NEGATIVE); URINE LEUKOCYTE ESTERASE NEG Leu/uL (Negative); URINE PROTEIN NEGATIVE (NEGATIVE)
[2018-06-24 17:38] LABS: ALB/GLOB RATIO 1.3 (1.0-2.1); ALT/SGPT 24 U/L (21-72); AST/SGOT 22 U/L (17-59); BLOOD UREA NITROGEN 21 mg/dl (9-20); CALCIUM 9.3 mg/dL (8.4-10.2); GFR NON-AFRICAN AMERICAN > 60
[2018-06-24 17:38] LABS: BARBITURATES, UR NEGATIVE (NEGATIVE); BENZODIAZEPINES, UR NEGATIVE (NEGATIVE); OPIATES, UR NEGATIVE (NEGATIVE); PHENCYCLIDINE, UR NEGATIVE (NEGATIVE)
== END 2018-06-24 20:50 | disposition home or self-care (01) ==
LOC: H.ER 16:26
DX: F32.9 Major depressive disorder, single episode, unspecified (principal)
CPT/HCPCS: 80053; 80164; 81003; 85025; 99283; G0480

== ENCOUNTER 2018-07-10 09:03 | Inpatient (IN) | payer MEDICARE ==
[2018-07-10 09:08] VITALS: BMI 21.9
[2018-07-10 09:09] VITALS: O2SAT 99
--- NOTE | 2018-07-10 09:53 | ED PDOC ---
HPI: Psych/Substance Abuse Time Seen by Provider: 07/10/18 09:17 Chief Complaint (Nursing): Psychiatric Evaluation Chief Complaint (Provider): psychiatric evaluation History Per: Patient History/Exam Limitations: no limitations Onset/Duration Of Symptoms: Days Current Symptoms Are (Timing): Still Present Additional Complaint(s): Jeremy Gaines is a 47 year old female, with a past medical history of depression, who presents to the emergency department for psychiatric evaluation. Patient states he is tired of waking up in the [facility] and living like a bum. Patient further states he has tried to get help but the resources from his social security are not enough. Patient reports losing weight and is unable to sleep at the [facility] due to fear of people stealing his things. He also reports feeling depressed stating he has no reason to live and wants to jump in front of a train. He denies any somatic complaints at this time. PMD: Clinic Past Medical History Reviewed: Historical Data, Nursing Documentation, Vital Signs Vital Signs: Last Vital Signs Temp 97.3 F L 07/10/18 09:08 Pulse 75 07/10/18 09:08 Resp 17 07/10/18 09:08 BP 119/77 07/10/18 09:08 Pulse Ox 99 07/10/18 09:08 - Medical History PMH: Bipolar Disorder, Depression Denies: Diabetes, Hepatitis, HIV, HTN, Chronic Kidney Disease, Seizures, Sexually Transmitted Disease - Surgical History Surgical History: Appendectomy - Family History Family History: States: Unknown Family Hx - Social History Current smoker - smoking cessation education provided: Yes (Heavy smoker >10 cigarettes daily) Alcohol: Social Drugs: Denies - Immunization History Hx Tetanus Toxoid Vaccination: No Hx Influenza Vaccination: No Hx Pneumococcal Vaccination: No - Home Medications Home Medications: Ambulatory Orders Medication Instructions Recorded RX: Multimineral/Multivitamin 1 tab PO DAILY tab 06/13/18 [Therapeutic-M Tab] RX: OXcarbazepine [Trileptal] 300 mg PO BID 30 Days #60 tab 06/19/18 RX: traZODone [Desyrel] 200 mg PO HS 30 Days #60 tab 06/19/18 - Allergies Allergies/Adverse Reactions: Allergies Allergy/AdvReac Type Severity Reaction Status Date / Time No Known Allergies Allergy Verified 06/14/18 22:21 Review of Systems ROS Statement: Except As Marked, All Systems Reviewed And Found Negative Psych: Positive for: Depression, Suicidal ideation Physical Exam - Reviewed Nursing Documentation Reviewed: Yes Vital Signs Reviewed: Yes - Physical Exam Appears: Positive for: No Acute Distress Head Exam: Positive for: ATRAUMATIC, NORMAL INSPECTION, NORMOCEPHALIC Skin: Positive for: Normal Color, Warm, Dry Eye Exam: Positive for: Normal appearance, EOMI, PERRL Neck: Positive for: Normal, Painless ROM, Supple Cardiovascular/Chest: Positive for: Regular Rate, Rhythm. Negative for: Murmur Respiratory: Positive for: Normal Breath Sounds. Negative for: Respiratory Distress Gastrointestinal/Abdominal: Positive for: Normal Exam, Soft. Negative for: Tenderness Back: Positive for: Normal Inspection. Negative for: L CVA Tenderness, R CVA Tenderness Extremity: Positive for: Normal ROM (upper and lower extremities). Negative for: Deformity Neurologic/Psych: Positive for: Alert, Oriented. Negative for: Motor/Sensory Deficits - Laboratory Results Result Diagrams: 07/10/18 10:50 07/10/18 10:50 - ECG O2 Sat by Pulse Oximetry: 99 (RA) Pulse Ox Interpretation: Normal Medical Decision Making Medical Decision Making: Time: 09:17 Initial Impression: Crisis evaluation for depression and suicidal ideation. Basic medical work up for admission and reevaluation. Will be put in 1:1 observa tion. Initial Plan: --EKG --Alcohol serum --BMP --Drug screen --Crisis evaluation --CBC w/ differential --Chest portable [RAD] --1:1 Observation --Reevaluation 11:36 Patient is medically cleared for evaluation by psychiatrist. Labs within normal limits. EKG shows NSR. Drug alcohol screen negative. Patient remains in 1:1. 11:45 Patient will be admitted for bipolar disorder, per Dr. Canales. Scribe Attestation: Documented by Josh Wang, acting as a scribe for Randa Hernandez MD Provider Scribe Attestation: All medical record entries made by the Scribe were at my direction and personally dictated by me. I have reviewed the chart and agree that the record accurately reflects my personal performance of the history, physical exam, medical decision making, and the department course for this patient. I have also personally directed, reviewed, and agree with the discharge instructions and disposition. Disposition - Clinical Impression Clinical Impression: Bipolar disorder - Patient ED Disposition Is Patient to be Admitted: Yes - Disposition Disposition Time: 11:45 Condition: STABLE
--- NOTE | 2018-07-10 10:41 | RAD ---
Date of service: 07/10/2018 HISTORY: possible admission COMPARISON: Portable chest 06/15/2018 FINDINGS: LUNGS: No active pulmonary disease. PLEURA: No significant pleural effusion identified, no pneumothorax apparent. CARDIOVASCULAR: No aortic atherosclerotic calcification present. Normal cardiac size. No pulmonary vascular congestion. OSSEOUS STRUCTURES: No significant abnormalities. VISUALIZED UPPER ABDOMEN: Normal. OTHER FINDINGS: None. IMPRESSION: No interval acute cardiopulmonary disease appreciated.
[2018-07-10 10:59] LABS: BASO # 0.1 K/uL (0.0-0.2); BASO % 0.8 % (0.0-2.0); EOS # 0.1 K/uL (0.0-0.7); EOS % 1.5 % (0.0-4.0); HEMOGLOBIN 13.3 g/dL (12.0-18.0); LYMPH # 1.9 K/uL (1.0-4.3); LYMPH % 25.2 % (20.0-40.0); MEAN CELL VOLUME 95.6 fl (80.0-94.0); MEAN CORPUSCULAR HEMOGLOBIN 32.5 pg (27.0-31.0); MEAN PLATELET VOLUME 8.5 fl (7.2-11.7); MONO # 0.4 K/uL (0.0-0.8); MONO % 5.3 % (0.0-10.0); NEUT # 5.1 K/uL (1.8-7.0); NEUT % 67.2 % (50.0-75.0); RBC 4.1 Mil/uL (4.40-5.90); WHITE BLOOD COUNT 7.6 K/uL (4.8-10.8)
[2018-07-10 11:11] LABS: BLOOD UREA NITROGEN 19 mg/dl (9-20); CALCIUM 9.6 mg/dL (8.4-10.2); GFR NON-AFRICAN AMERICAN > 60
[2018-07-10 11:41] LABS: BARBITURATES, UR NEGATIVE (NEGATIVE); BENZODIAZEPINES, UR NEGATIVE (NEGATIVE); OPIATES, UR NEGATIVE (NEGATIVE); PHENCYCLIDINE, UR NEGATIVE (NEGATIVE)
[2018-07-10] MEDS ORDERED: Alum-Mag Hydrox-Simethicone Susp (30 mL) PO PRN (15:28)
[2018-07-10] MEDS ORDERED: DiphenhydrAMINE 50 mg/ml Inj IM PRN (15:28)
[2018-07-10] MEDS ORDERED: Magnesium Hydroxide Susp 30 ml UD PO PRN (15:28)
--- NOTE | 2018-07-10 16:56 | CARD ---
APPROVED REPORT Date of service: 07/10/2018 EKG Measurement Heart [id number] <Conclusion> Normal sinus rhythm Normal ECG
--- NOTE | 2018-07-10 18:38 | PCM.BM ---
<RodriFransiscopalceli - Last Filed: 07/10/18 18:36> Treatment Plan Problems - Problems identified on initial assessmt Hopelessness/Helplessness Date Initiated: 07/10/18 Time Initiated: 18:36 Assessment reference: NA Status: Active Altered Sleep Patterns Date Initiated: 07/10/18 Time Initiated: 18:37 Assessment reference: NA Status: Active Medication nonadherence Date Initiated: 07/10/18 Time Initiated: 18:38 Assessment reference: NA Status: Active Treatment assets and liabiliti Patient Assests: cooperative, resourceful, self-reliant, ADL independent, ph ysically healthy Patient Liabilities: financial problems, poor support system, relationship conflicts, imparied memory - Milieu Protocol Maintain good personal hygiene: daily Encourage regular showers, daily Remind patient to perform daily oral care, daily Assist patient to perform ADL's Conduct patient checks and document Observation sheet: Q15 minutes Maintain personal safety: every shift Educate patient to report safety concerns to staff, every shift Monitor environment for contraband/sharps Medication safety: Monitor for expected outcome, potential side effects: every shift, Assess barriers to learning: every shift, Assess readiness for medication education: every shift Family Contact Family involvement: Famliy/SO not involved <Aleyda Beasley - Last Filed: 07/13/18 12:33> Treatment assets and liabiliti Patient Assests: adapts well, cooperative, educated (Pt. reports having completed high school.), resourceful, self-reliant, ADL independent, physically healthy, good support system (Pt. identifies girlfriend as primary support but does report significant discord secondary to girlfriend being chronically mentally ill.), negotiates basic needs (Pt. able to communicate basic needs and engage in discussion regarding tx goals.), cognitively intact Patient Liabilities: live alone ( Pt. reports homelessness x6 years. Pt. currently working with patient case manager and girlfriend (also homeless) to secure stable housing.), financial problems (Pt. receiving SSDI ($600) and reports amount is insufficent to secure housing. Pt. reports being unable to maintai employment secondary to fear it will lead to discontinuation of SSI benefits.), poor support system (Pt. reports limited communication with adult daughter, fat her, and brother.), relationship conflicts, substance abuse (Pt. reports hx of ETOH abuse but denies recent/current ETOH/illicit substance abuse. ), imparied memory (Pt. reports hx of head trauma resulting in memory lapses. ), legal issue (Pt. reports hx of arrests for DUI and simple assault. Pt. denies outstanding legal issues.) Family Contact Family involvement: Famliy/SO not involved Family contact: Patient declines to allow family contact at present - Outside Agency Agency 1 Care involvment: Other (Pt. to return to [facility] for community case management for purposes of assistance with housing resources.) Agency contact name: [facility] Agency contact number: - Goals for Treatment Patient goals for treatment: Patient to continue stabilization on 3 through medication management and group/supportive therapy to address sxs of depression and eliminate SI. Patient to be encouraged to attend groups regularly to promote self-awareness, frustration tolerance, and improve insight, compliance, coping skills and self-esteem. Patient to be provided with referral for appropriate level of aftercare to reduce risk of future hospitalizations and ensure safety in the community. Pt. identifies primary tx goal as "getting stable housing". Branch Lead provided psychoeducation regarding nature of tx and referrals provided on a voluntary unit such as [facility] and explained limitations regarding housing resources. Pt. expressed understanding of the above and was able to identify being put back on appropriate medications as a tx goal. Discharge/Continuing Care - Education Needs Education Needs: Patient Medication, Patient Diagnosis/Disease Process, Patient Coping Skills, Patient Anger Management skills, Patient Community resources, Patient Aftercare Safety Plan - Discharge Discharge Criteria: Tolerates medication w/o severe side effects, Free of Suicidal thoughts, Free of agitation, Normal sleep pattern, Reduction of target symptoms Discharge to:: Jail, Other ([facility]/ [facility]) - Treatment Team Participation Patient/Family/SO Statement: 07/13/18 12:29 Pt. attended tx team on 07/12 to discuss precursors to hospitalization and tx goals. Pt. reported improvement in sxs of depression since admission as exhibited by elimination of SI. Pt. requested to have Trazadone increased secondary to ongoing sleep disturbances. Pt. expressed frustration regarding difficulties securing stable housing and identifying assistance with licensed social worker as primary tx goal. Branch Lead provided psychoeducation regarding nature of tx and referrals provided on a voluntary unit such as [facility] and explained limitations regarding housing resources. Pt. became discharge focused, stating "I have to go and supervisor coating line for licensed social worker." Benefits of completing stabilization on 3NP emphasized. Pt. initially receptive to feedback but later signed a 48 hour notice. Discussed with Family/SO: No Was Patient/Family/SO present at Treatment Team Meeting: Yes
--- NOTE | 2018-07-11 14:14 | CP.PCM.CON ---
<ZuleykaDebi - Last Filed: 07/11/18 14:23> History of Present Illness - History of Present Illness History of Present Illness: Hospitalist Consult Note: 47 year old male patient, with PMHx of bipolar disorder and depression, admitted to psych for suicidal ideation and bipolar disorder. Patient states that he was living in a halfway and having difficulty taking care of himself, and after having bad thoughts recently he present to the ED for treatment. He admits to suicidal ideation and plan in his past and didn't want anything bad to happen this time. Denies nausea/vomiting/fever/shortness of breath/chest pain. PMD: Clinic PMHx: depression, bipolar disorder PSHx: denies ALL: NKDA SH: tobacco use (15 cigarettes per day for 5 years), former alcohol abuse Review of Systems - Review of Systems Review of Systems: 10 point review of systems negative except those states in HPI Past Patient History - Infectious Disease Hx of Infectious Diseases: None - Tetanus Immunizations Tetanus Immunization: Unknown - Past Medical History & Family History Past Medical History?: No - Past Social History Alcohol: Social Drugs: Denies - CARDIAC Hx Hypertension: No - PULMONARY Hx Respiratory Disorders: No Hx Tuberculosis: No - NEUROLOGICAL Hx Seizures: No - HEENT Hx HEENT Problems: No - RENAL Hx Chronic Kidney Disease: No - ENDOCRINE/METABOLIC Hx Endocrine Disorders: No - HEMATOLOGICAL/ONCOLOGICAL Hx Human Immunodeficiency Virus (HIV): No - INTEGUMENTARY Hx Dermatological Problems: No - MUSCULOSKELETAL/RHEUMATOLOGICAL Hx Musculoskeletal Disorders: No - GASTROINTESTINAL Hx Gastrointestinal Disorders: No - GENITOURINARY/GYNECOLOGICAL Hx Sexually Transmitted Disorders: No - PSYCHIATRIC Hx Bipolar Disorder: Yes Hx Depression: Yes - SURGICAL HISTORY Hx Appendectomy: Yes - ANESTHESIA Hx Anesthesia: Yes Hx Anesthesia Reactions: No Meds Allergies/Adverse Reactions: Allergies Allergy/AdvReac Type Severity Reaction Status Date / Time No Known Allergies Allergy Verified 06/14/18 22:21 - Medications Medications: Current Medications Acetaminophen (Tylenol 325mg Tab) 650 mg PO Q4 PRN PRN Reason: Pain, moderate (4-7) Al Hydrox/Mg Hydrox/Simethicone (Maalox Plus 30 Ml) 30 ml PO Q4 PRN PRN Reason: Dyspepsia Diphenhydramine HCl (Benadryl) 50 mg IM Q6 PRN PRN Reason: Extrapyramidal S/S Unable PO Diphenhydramine HCl (Benadryl) 50 mg PO Q6 PRN PRN Reason: Extrapyramidal Symptoms Diphenhydramine HCl (Benadryl) 50 mg PO HS PRN PRN Reason: Sleep Haloperidol (Haldol) 5 mg PO Q4 PRN PRN Reason: Agitation Haloperidol Lactate (Haldol) 5 mg IM Q4 PRN PRN Reason: Agitation, Unable to Take PO Lorazepam (Ativan) 2 mg IM Q4 PRN PRN Reason: Anxiety/Agitation,Unable PO Lorazepam (Ativan) 2 mg PO Q4 PRN PRN Reason: Anxiety/Agitation Magnesium Hydroxide (Milk Of Magnesia) 30 ml PO HS PRN PRN Reason: Constipation Nicotine (Nicoderm Cq) 1 patch TD DAILY KATIA Oxcarbazepine (Trileptal) 300 mg PO BID KATIA Trazodone HCl (Desyrel) 50 mg PO HS KATIA Physical Exam - Constitutional Appears: No Acute Distress - Head Exam Head Exam: ATRAUMATIC, NORMOCEPHALIC - Eye Exam Eye Exam: Normal appearance Pupil Exam: NORMAL ACCOMODATION - ENT Exam ENT Exam: Mucous Membranes Moist - Respiratory Exam Respiratory Exam: Clear to Auscultation Bilateral, NORMAL BREATHING PATTERN - Cardiovascular Exam Cardiovascular Exam: REGULAR RHYTHM - GI/Abdominal Exam GI & Abdominal Exam: Normal Bowel Sounds, Soft - Extremities Exam Extremities exam: Positive for: normal capillary refill, normal inspection. Negative for: calf tenderness - Neurological Exam Neurological exam: Alert, Oriented x3 - Psychiatric Exam Psychiatric exam: Normal Affect, Normal Mood Results - Vital Signs Recent Vital Signs: Last Vital Signs Temp 98.2 F 07/11/18 09:22 Pulse 68 07/11/18 09:22 Resp 16 07/11/18 09:22 BP 109/58 L 07/11/18 09:22 Pulse Ox 99 07/10/18 18:30 - Labs Result Diagrams: 07/10/18 10:50 07/10/18 10:50 Labs: Laboratory Results - last 24 hr 07/11/18 08:10 Thyroxine (T4) 6.34 TSH 3rd Generation 1.33 Assessment & Plan - Assessment and Plan (Free Text) Assessment: 47 year old male patient, with PMHx of depression, admitted to psych for suicidal ideation, bipolar disorder Plan: 1. Suicidal Ideation/Depression - Management per psych 2. Bipolar disorder - Management per psych 3. Tobacco use - Nicotine patch - Date & Time Date: 07/11/18 Time: 14:14 <Aster Gage - Last Filed: 07/12/18 17:37> Meds - Medications Medications: Current Medications Acetaminophen (Tylenol 325mg Tab) 650 mg PO Q4 PRN PRN Reason: Pain, moderate (4-7) Al Hydrox/Mg Hydrox/Simethicone (Maalox Plus 30 Ml) 30 ml PO Q4 PRN PRN Reason: Dyspepsia Diphenhydramine HCl (Benadryl) 50 mg IM Q6 PRN PRN Reason: Extrapyramidal S/S Unable PO Diphenhydramine HCl (Benadryl) 50 mg PO Q6 PRN PRN Reason: Extrapyramidal Symptoms Diphenhydramine HCl (Benadryl) 50 mg PO HS PRN PRN Reason: Sleep Haloperidol (Haldol) 5 mg PO Q4 PRN PRN Reason: Agitation Haloperidol Lactate (Haldol) 5 mg IM Q4 PRN PRN Reason: Agitation, Unable to Take PO Lorazepam (Ativan) 2 mg IM Q4 PRN PRN Reason: Anxiety/Agitation,Unable PO Lorazepam (Ativan) 2 mg PO Q4 PRN PRN Reason: Anxiety/Agitation Magnesium Hydroxide (Milk Of Magnesia) 30 ml PO HS PRN PRN Reason: Constipation Nicotine (Nicoderm Cq) 1 patch TD DAILY [facility] Last Admin: 07/12/18 09:01 Dose: 1 patch Oxcarbazepine (Trileptal) 300 mg PO BID [facility] Last Admin: 07/12/18 09:00 Dose: 300 mg Results - Vital Signs Recent Vital Signs: Last Vital Signs Temp 97.7 F 07/12/18 16:44 Pulse 87 07/12/18 16:44 Resp 18 07/12/18 16:44 BP 103/60 07/12/18 16:44 Pulse Ox 99 07/10/18 18:30 - Labs Result Diagrams: 07/10/18 10:50 07/10/18 10:50 Attending/Attestation - Attestation I have personally seen and examined this patient.: Yes I have fully participated in the care of the patient.: Yes I have reviewed all pertinent clinical information: Yes Notes (Text): 07/12/18 17:37 Agree with findings and plan as above.
--- NOTE | 2018-07-11 14:14 | CP.PCM.PN ---
Subjective - Date & Time of Evaluation Date of Evaluation: 07/11/18 Time of Evaluation: 14:14 Objective - Vital Signs/Intake and Output Vital Signs (last 24 hours): Temp Pulse Resp BP Pulse Ox 98.2 F 68 16 109/58 L 99 07/11/18 09:22 07/11/18 09:22 07/11/18 09:22 07/11/18 09:22 07/10/18 18:30 - Medications Medications: Current Medications Acetaminophen (Tylenol 325mg Tab) 650 mg PO Q4 PRN PRN Reason: Pain, moderate (4-7) Al Hydrox/Mg Hydrox/Simethicone (Maalox Plus 30 Ml) 30 ml PO Q4 PRN PRN Reason: Dyspepsia Diphenhydramine HCl (Benadryl) 50 mg IM Q6 PRN PRN Reason: Extrapyramidal S/S Unable PO Diphenhydramine HCl (Benadryl) 50 mg PO Q6 PRN PRN Reason: Extrapyramidal Symptoms Diphenhydramine HCl (Benadryl) 50 mg PO HS PRN PRN Reason: Sleep Haloperidol (Haldol) 5 mg PO Q4 PRN PRN Reason: Agitation Haloperidol Lactate (Haldol) 5 mg IM Q4 PRN PRN Reason: Agitation, Unable to Take PO Lorazepam (Ativan) 2 mg IM Q4 PRN PRN Reason: Anxiety/Agitation,Unable PO Lorazepam (Ativan) 2 mg PO Q4 PRN PRN Reason: Anxiety/Agitation Magnesium Hydroxide (Milk Of Magnesia) 30 ml PO HS PRN PRN Reason: Constipation Nicotine (Nicoderm Cq) 1 patch TD DAILY [facility] Oxcarbazepine (Trileptal) 300 mg PO BID KATIA Trazodone HCl (Desyrel) 50 mg PO HS KATIA - Labs Labs: 07/10/18 10:50 07/10/18 10:50
--- NOTE | 2018-07-11 14:24 | PCM.PSYCH ---
Initial Psychiatric Evaluation - Initial Psychiatric Evaluation Type of Admission: Voluntary Legal Status: Capacity Chief Complaint (in patient's own words): I could not get out of my bad situation History of Present Illness and Precipitating Events: pt is 47 ys old male with previous psychiatric diagnosis of bipolar disorder, reportedly compliant with medications, presented to ER due to having suicidal ideation with plan to overdose on medications, pt reported has been increasingly depressed due to financial difficulties and living in a [facility], reported feeling hopeless and helpless , low motivation, continues to have passive suicidal ideation without active plan on the unit denied perceptual disturbances, denied substance use Current Medications: Active Medications Generic Name Dose Route Start Last Admin Trade Name Freq PRN Reason Stop Dose Admin Acetaminophen 650 mg 07/10/18 15:28 Tylenol 325mg Tab PO Q4 PRN Pain, moderate (4-7) Al Hydrox/Mg Hydrox/Simethicone 30 ml 07/10/18 15:28 Maalox Plus 30 Ml PO Q4 PRN Dyspepsia Diphenhydramine HCl 50 mg 07/10/18 15:28 Benadryl IM Q6 PRN Extrapyramidal S/S Unable PO Diphenhydramine HCl 50 mg 07/10/18 15:28 Benadryl PO Q6 PRN Extrapyramidal Symptoms Diphenhydramine HCl 50 mg 07/10/18 20:19 Benadryl PO HS PRN Sleep Haloperidol 5 mg 07/10/18 15:28 Haldol PO Q4 PRN Agitation Haloperidol Lactate 5 mg 07/10/18 15:28 Haldol IM Q4 PRN Agitation, Unable to Take PO Lorazepam 2 mg 07/10/18 15:28 Ativan IM Q4 PRN Anxiety/Agitation,Unable PO Lorazepam 2 mg 07/10/18 15:28 Ativan PO Q4 PRN Anxiety/Agitation Magnesium Hydroxide 30 ml 07/10/18 15:28 Milk Of Magnesia PO HS PRN Constipation Nicotine 1 patch 07/12/18 09:00 Nicoderm Cq TD DAILY KATIA Oxcarbazepine 300 mg 07/11/18 17:00 Trileptal PO BID KATIA Trazodone HCl 50 mg 07/11/18 22:00 Desyrel PO HS KATIA Past Psychiatric History - Past Psychiatric History Explanation of prior treatment: multiple hospitalizations, partial compliance History of ETOH/Drug Use: denied Pertinent Medical Hx (Current Medical&Sleep Prob, Allergies): Allergies Allergy/AdvReac Type Severity Reaction Status Date / Time No Known Allergies Allergy Verified 06/14/18 22:21 Multimineral/Multivitamin [Therapeutic-M Tab] 1 tab PO DAILY tab 06/13/18 OXcarbazepine [Trileptal] 300 mg PO BID 30 Days #60 tab 06/19/18 traZODone [Desyrel] 200 mg PO HS 30 Days #60 tab 06/19/18 Mental Status Examination - Personal Presentation Personal Presentation: Looks stated age - Affect Affect: Constricted - Motor Activity Motor Activity: Psychomotor Agitation - Reliability in Providing Information Reliability in Providing Information: Fair - Speech Speech: Relevant - Mood Mood: Depressed, Anxious - Formal Thought Process Formal Thought Process: Paranoia, Circumstantial - Obsessions/Compulsions Obsessions: No Compulsions: No - Cognitive Functions Orientation: Person, Place Sensorium: Alert Attention/Concentration: Attentive Judgement: Imparied, as evidence by: Poor judgement, Imparied, as evidence by: Lack of insight into illness - Risk Risk: Suicidal, Diminished functioning - Strength & Assets Inventory Strength & Assets Inventory: Life experience - Limitations Additional comments: homeless DSM 5 DX - DSM 5 DSM 5 Diagnosis: bipolar disorder depressed - Recommended/Plan of Treatment Treatment Recommendations and Plan of Treatment: trileptal 300mg bid tazodone 100mg qhs effexor 37.5 mg daily CBT group and supportive therapy
[2018-07-11] MEDS: OXcarbazepine 300 mg/5 ml Syringe PO SCH (16:49)
[2018-07-12] MEDS: OXcarbazepine 300 mg/5 ml Syringe PO SCH ×2 (09:00→18:13)
[2018-07-12 10:19] VITALS: RESP 18
--- NOTE | 2018-07-12 13:18 | PCM.PYCHPN ---
Psychiatric Progress Note - Psychiatric Progress Note Patient seen today, length of contact: pt evaluated discussed with team chart reviewed Patient Chief Complaint: I need help for housing Problems Identified/Issues Discussed: pt evaluated with treatment team presenting with anxious mood and irritable affect, pt reported frustrated because of his current living situation, CBT provided, pt also reported decreased sleep discussed increasing trazodone , pt denied active thoughts of self harm denied command hallucinations Medical Problems: multiple hospitalizations, partial compliance DSM 5 Symptoms Update: bipolar I disorder Medication Change: Yes (increase trazodone ) Medical Record Reviewed: Yes Mental Status Examination - Cognitive Function Orientation: Person, Place Attention: WNL Concentration: WNL Association: WNL Fund of Knowledge: Poor Decription of patient's judgement and insights: poor insight and judgment - Mood Mood: Depressed, Anxious - Affect Affect: Constricted - Formal Thought Process Formal Thought Process: Paranoia, Circumstantial - Suicidal Ideation Suicidal Ideation: No - Homicidal Ideation Homicidal Ideation: No Goal/Treatment Plan - Goal/Treatment Plan Need for Continued Stay: Remain at risks for inpatient hospitalization, Discharge may exacerbated symptoms Progress Toward Problem(s) and Goals/Treatment Plan: trileptal 300mg bid/ increase gradually tazodone 100mg qhs CBT group and supportive therapy
[2018-07-13] MEDS: OXcarbazepine 300 mg/5 ml Syringe PO SCH (08:43)
[2018-07-13 09:21] VITALS: BP 122/57; PULSE 67; TEMP 97.1
--- NOTE | 2018-07-13 12:16 | PCM.PYCHDC ---
Mental Status Examination - Mental Status Examination Orientation: Person, Place, Situation Memory: Intact Mood: Neutral Affect: Broad Speech: Appropriate Attention: WNL Concentration: WNL Association: WNL Fund of Knowledge: WNL Formal Thought Process: No Impairment Description of patient's judgement and insight: poor insight and judgment Psychotic Thoughts and Behaviors: pt on discharge denied perceptual disturbances, non elicited Suicidal Ideation: No Current Homicidal Ideation?: No Discharge Summary - Discharge Note Reason for Hospitalization: pt is 47 ys old male with previous psychiatric diagnosis of bipolar disorder, reportedly compliant with medications, presented to ER due to having suicidal ideation with plan to overdose on medications, pt reported has been increasingly depressed due to financial difficulties and living in a [facility], reported feeling hopeless and helpless , low motivation, continues to have passive suicidal ideation without active plan on the unit denied perceptual disturbances, denied substance use Consultations:: List each consultation separately and include: 1. Reason for request. 2. Findings. 3. Follow-up Summary of Hospital Course include:: 1. Description of specific treatment plan utilized for patients during their course of treatmen. 2. Summarize the time- course for resolution of acute symptoms and/or regressed behaviors. 3. Describe issues identified and worked on during hospitalization. 4. Describe medication utilized. 5. Describe medical problems identified and treated. 6. Reassessment of suicide risk Summary of Hospital Course: pt on admission was presenting with edginess and irritability pt was started on trileptal, increased to 300mg bid and also started on trazodone 100mg qhs for insomnia CBT group and supportive therapy was provided, pt on discharge mental status was stable, denied any current suicidal or homicidal ideation, denied perceptual disturbances follow up arranged by social media intern [facility] outpatient services - Final Diagnosis (DSM 5) Condition upon Discharge: STABLE DSM 5: bipolar I disorder Disposition: HOME/ ROUTINE Follow-up Treatment Plan: trileptal 300mg bid/ increase gradually tazodone 100mg qhs CBT group and supportive therapy Prescriptions/Medication Reconciliation: OXcarbazepine [Trileptal] 300 mg PO BID 30 Days #60 tab traZODone [Desyrel] 200 mg PO HS 30 Days #60 tab - Smoking Cessation Smoking Cessation Medication prescribed: No - Antipsychotic Medications Pt discharged on 2 or more routine antipsychotic medications: No
== END 2018-07-13 13:32 | disposition home or self-care (01) | DRG 885 ==
LOC: H.ER 09:03 → H.ERHOLD 11:45 → H.PSYCH 14:32
PROVIDERS: ADMIT Psychiatry & Neurology Psychiatry; ATTEND Psychiatry & Neurology Psychiatry
PROC: GZHZZZZ Group Psychotherapy (ICD-10-PCS; principal; 2018-07-10)
PROC: GZ58ZZZ Individual Psychotherapy, Cognitive-Behavioral (ICD-10-PCS; 2018-07-10)
PROC: GZ56ZZZ Individual Psychotherapy, Supportive (ICD-10-PCS; 2018-07-10)
DX: F31.9 Bipolar disorder, unspecified (principal); R45.851 Suicidal ideations; F17.210 Nicotine dependence, cigarettes, uncomplicated; G47.00 Insomnia, unspecified; R45.4 Irritability and anger; Z59.9 Problem related to housing and economic circumstances, unspecified

== ENCOUNTER 2018-08-11 13:10 | Inpatient (IN) | payer MEDICARE ==
[2018-08-11 13:10] VITALS: BMI 21.9
[2018-08-11 15:33] LABS: BASO # 0.1 K/uL (0.0-0.2); BASO % 0.8 % (0.0-2.0); EOS # 0.1 K/uL (0.0-0.7); EOS % 1.1 % (0.0-4.0); HEMOGLOBIN 13.9 g/dL (12.0-18.0); LYMPH # 2.5 K/uL (1.0-4.3); LYMPH % 26.9 % (20.0-40.0); MEAN CELL VOLUME 95.3 fl (80.0-94.0); MEAN CORPUSCULAR HEMOGLOBIN 32.8 pg (27.0-31.0); MEAN CORPUSCULAR HGB CONC 34.4 g/dL (33.0-37.0); MEAN PLATELET VOLUME 8.1 fl (7.2-11.7); MONO # 0.6 K/uL (0.0-0.8); MONO % 6.4 % (0.0-10.0); NEUT # 6.1 K/uL (1.8-7.0); NEUT % 64.8 % (50.0-75.0); NRBC % 0.1 % (0.0-0.0); RBC 4.23 Mil/uL (4.40-5.90); RED CELL DISTRIBUTION WIDTH 14.1 % (11.5-14.5); WHITE BLOOD COUNT 9.4 K/uL (4.8-10.8)
[2018-08-11 15:39] LABS: SPERM URINE OCC /hpf; URINE BILIRUBIN NEGATIVE (NEGATIVE); URINE BLOOD NEGATIVE (NEGATIVE); URINE CLARITY SLIGHTY-CLOUDY (Clear); URINE COLOR YELLOW (YELLOW); URINE GLUCOSE (UA) NEG (NEGATIVE); URINE LEUKOCYTE ESTERASE NEG Leu/uL (Negative); URINE PROTEIN 30 mg/dL (NEGATIVE)
[2018-08-11 15:45] LABS: ALB/GLOB RATIO 1.3 (1.0-2.1); ALBUMIN 4.3 g/dL (3.5-5.0); ALT/SGPT 19 U/L (21-72); AST/SGOT 19 U/L (17-59); BLOOD UREA NITROGEN 20 mg/dl (9-20); CALCIUM 9.7 mg/dL (8.4-10.2); GFR NON-AFRICAN AMERICAN > 60
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
[2018-08-11] MEDS ORDERED: Potassium Chloride 20 mEq ER Tab PO ONE ×2 (16:01→20:19)
[2018-08-11 16:04] LABS: BARBITURATES, UR NEGATIVE (NEGATIVE); BENZODIAZEPINES, UR NEGATIVE (NEGATIVE); OPIATES, UR NEGATIVE (NEGATIVE); PHENCYCLIDINE, UR NEGATIVE (NEGATIVE)
[2018-08-11 16:27] LABS: URINE UROBILINOGEN 0.2 mg/dL (0.2-1.0)
[2018-08-11 20:20] VITALS: RESP 18; O2SAT 99
[2018-08-11] MEDS ORDERED: Magnesium Hydroxide Susp 30 ml UD PO PRN (20:39)
[2018-08-11] MEDS ORDERED: Alum-Mag Hydrox-Simethicone Susp (30 mL) PO PRN (20:39)
[2018-08-11] MEDS ORDERED: DiphenhydrAMINE 50 mg/ml Inj IM PRN (20:39)
--- NOTE | 2018-08-11 22:00 | PCM.BM ---
<KamLiane Colin - Last Filed: 08/11/18 21:57> Treatment Plan Problems - Problems identified on initial assessmt Medication nonadherence Date Initiated: 08/11/18 Time Initiated: 21:58 Assessment reference: NA Status: Active Hopelessness/Helplessness Date Initiated: 08/11/18 Time Initiated: 21:58 Assessment reference: NA Status: Active Altered Sleep Patterns Date Initiated: 08/11/18 Time Initiated: 22:00 Assessment reference: NA Status: Active Treatment assets and liabiliti Patient Assests: adapts well, cooperative, resourceful, self-reliant, ADL independent, physically healthy, good support system (Pt. identifies girlfriend as primary support but does report significant discord secondary to girlfriend being chronically mentally ill.), negotiates basic needs (Pt. able to communicate basic needs and engage in discussion regarding tx goals.), cognitively intact Patient Liabilities: financial problems, poor support system, other (Homelessness) - Milieu Protocol Maintain good personal hygiene: daily Encourage regular showers, every shift Remind patient to perform daily oral care, every shift Assist patient to perform ADL's Maintain personal safety: every shift Educate patient to report safety concerns to staff, every shift Monitor environment for contraband/sharps Medication safety: Monitor for expected outcome, potential side effects: every shift, Assess barriers to learning: every shift, Assess readiness for medication education: every shift <Brooks Smith - Last Filed: 08/13/18 10:45> Family Contact Family involvement: Famliy/SO not involved Family contact: Patient declines to allow family contact at present Family contact name: Pt refused. - Goals for Treatment Patient goals for treatment: Pt is unable to formulate any goals specific to psychiatric treatment. Pt continues to ask that staff help him obtain housing, despite being told at each hospitalization that this is not something that [facility] can assist with. Pt is already connected to [facility]. Discharge/Continuing Care - Education Needs Education Needs: Patient Medication, Patient Diagnosis/Disease Process, Patient Coping Skills, Patient Placement options, Patient Community resources, Patient Aftercare Safety Plan - Discharge Discharge Criteria: Tolerates medication w/o severe side effects, Free of Suicidal thoughts, Free of agitation, Ability to care for self, Reduction of target symptoms Discharge to:: Penitentiary - Treatment Team Participation Discussed with Family/SO: No Was Patient/Family/SO present at Treatment Team Meeting: Yes
--- NOTE | 2018-08-12 11:19 | CP.PCM.CON ---
History of Present Illness - History of Present Illness History of Present Illness: 47 yo male admitted multiple of times for suicidal ideation admitted to psyche unit for similar reason. Review of Systems - Review of Systems All systems: reviewed and no additional remarkable complaints except (aside from those mentioned above, 12 point system review were negative by me) Past Patient History - Infectious Disease Hx of Infectious Diseases: None - Tetanus Immunizations Tetanus Immunization: Unknown - Past Medical History & Family History Past Medical History?: No - Past Social History Smoking Status: Heavy Smoker > 10 Cigarettes Daily Chewing Tobacco Use: No Cigar Use: No Alcohol: None Drugs: Denies - CARDIAC Hx Cardiac Disorders: No Hx Hypertension: No - PULMONARY Hx Tuberculosis: No - NEUROLOGICAL HX Cerebrovascular Accident: No Hx Seizures: No - HEENT Hx HEENT Problems: No - RENAL Hx Chronic Kidney Disease: No - ENDOCRINE/METABOLIC Hx Endocrine Disorders: No - HEMATOLOGICAL/ONCOLOGICAL Hx Cancer: No Hx Human Immunodeficiency Virus (HIV): No - INTEGUMENTARY Hx Dermatological Problems: No - MUSCULOSKELETAL/RHEUMATOLOGICAL Hx Musculoskeletal Disorders: No - GASTROINTESTINAL Hx Gastrointestinal Disorders: No - GENITOURINARY/GYNECOLOGICAL Hx Sexually Transmitted Disorders: No - PSYCHIATRIC Hx Substance Use: No - SURGICAL HISTORY Hx Appendectomy: Yes - ANESTHESIA Hx Anesthesia: Yes Hx Anesthesia Reactions: No Meds Allergies/Adverse Reactions: Allergies Allergy/AdvReac Type Severity Reaction Status Date / Time No Known Allergies Allergy Verified 06/14/18 22:21 - Medications Medications: Current Medications Acetaminophen (Tylenol 325mg Tab) 650 mg PO Q4 PRN PRN Reason: Pain, moderate (4-7) Al Hydrox/Mg Hydrox/Simethicone (Maalox Plus 30 Ml) 30 ml PO Q4 PRN PRN Reason: Dyspepsia Diphenhydramine HCl (Benadryl) 50 mg IM Q6 PRN PRN Reason: Extrapyramidal S/S Unable PO Diphenhydramine HCl (Benadryl) 50 mg PO Q6 PRN PRN Reason: Extrapyramidal Symptoms Diphenhydramine HCl (Benadryl) 50 mg PO HS PRN PRN Reason: Sleep Haloperidol (Haldol) 5 mg PO Q4 PRN PRN Reason: Agitation Haloperidol Lactate (Haldol) 5 mg IM Q4 PRN PRN Reason: Agitation, Unable to Take PO Lorazepam (Ativan) 2 mg IM Q4 PRN PRN Reason: Anxiety/Agitation,Unable PO Magnesium Hydroxide (Milk Of Magnesia) 30 ml PO HS PRN PRN Reason: Constipation Trazodone HCl (Desyrel) 100 mg PO HS [facility] Last Admin: 08/11/18 21:41 Dose: 100 mg Physical Exam - Constitutional Appears: No Acute Distress - Head Exam Head Exam: ATRAUMATIC - Eye Exam Eye Exam: absent: Scleral icterus - ENT Exam ENT Exam: Mucous Membranes Moist - Neck Exam Neck exam: Negative for: Meningismus - Respiratory Exam Respiratory Exam: absent: Rales, Rhonchi, Wheezes, Respiratory Distress - Cardiovascular Exam Cardiovascular Exam: REGULAR RHYTHM, +S1, +S2 - GI/Abdominal Exam GI & Abdominal Exam: Soft. absent: Tenderness - Rectal Exam Rectal Exam: Deferred - Neurological Exam Neurological exam: Alert, Oriented x3 - Psychiatric Exam Psychiatric exam: Normal Affect - Skin Skin Exam: Dry, Intact Results - Vital Signs Recent Vital Signs: Last Vital Signs Temp 97.5 F L 08/12/18 09:00 Pulse 73 08/12/18 09:00 Resp 18 08/12/18 09:00 BP 84/51 L 08/12/18 09:00 Pulse Ox 99 08/11/18 20:20 - Labs Result Diagrams: 08/11/18 15:05 08/11/18 15:05 Labs: Laboratory Results - last 24 hr 08/11/18 08/11/18 08/11/18 15:05 15:05 15:05 WBC 9.4 RBC 4.23 L Hgb 13.9 Hct 40.3 MCV 95.3 H MCH 32.8 H MCHC 34.4 RDW 14.1 Plt Count 263 MPV 8.1 Neut % (Auto) 64.8 Lymph % (Auto) 26.9 [place] % (Auto) 6.4 Eos % (Auto) 1.1 Baso % (Auto) 0.8 Neut # (Auto) 6.1 Lymph # (Auto) 2.5 [place] # (Auto) 0.6 Eos # (Auto) 0.1 Baso # (Auto) 0.1 Sodium 139 Potassium 3.4 L Chloride 103 Carbon Dioxide 28 Anion Gap 11 BUN 20 Creatinine 0.9 Est GFR ( Amer) > 60 Est GFR (Non-Af Amer) > 60 Random Glucose 76 Calcium 9.7 Total Bilirubin 0.2 AST 19 ALT 19 L D Alkaline Phosphatase 59 Total Protein 7.5 Albumin 4.3 Globulin 3.3 Albumin/Globulin Ratio 1.3 Triglycerides Cholesterol LDL Cholesterol Direct HDL Cholesterol Thyroxine (T4) TSH 3rd Generation Urine Color Urine Clarity Urine pH Ur Specific [place] Urine Protein Urine Glucose (UA) Urine Ketones Urine Blood Urine Nitrate Urine Bilirubin Urine Urobilinogen Ur Leukocyte Esterase Urine RBC (Auto) Urine Microscopic WBC Urine Sperm (Auto) Urine Opiates Screen Negative Urine Methadone Screen Negative Ur Barbiturates Screen Negative Ur Phencyclidine Scrn Negative Ur Amphetamines Screen Negative U Benzodiazepines Scrn Negative U Oth Cocaine Metabols Negative U Cannabinoids Screen Negative 08/11/18 08/12/18 15:05 06:10 WBC RBC Hgb Hct MCV MCH MCHC RDW Plt Count MPV Neut % (Auto) Lymph % (Auto) [place] % (Auto) Eos % (Auto) Baso % (Auto) Neut # (Auto) Lymph # (Auto) [place] # (Auto) Eos # (Auto) Baso # (Auto) Sodium Potassium Chloride Carbon Dioxide Anion Gap BUN Creatinine Est GFR ( Amer) Est GFR (Non-Af Amer) Random Glucose Calcium Total Bilirubin AST ALT Alkaline Phosphatase Total Protein Albumin Globulin Albumin/Globulin Ratio Triglycerides 89 D Cholesterol 131 LDL Cholesterol Direct 74 HDL Cholesterol 36 Thyroxine (T4) 7.13 TSH 3rd Generation 1.51 Urine Color Yellow Urine Clarity Slighty-cloudy Urine pH 6.0 Ur Specific [place] 1.029 Urine Protein 30 Urine Glucose (UA) Neg Urine Ketones Trace Urine Blood Negative Urine Nitrate Negative Urine Bilirubin Negative Urine Urobilinogen 0.2 Ur Leukocyte Esterase Neg Urine RBC (Auto) 1 Urine Microscopic WBC 3 Urine Sperm (Auto) Occ Urine Opiates Screen Urine Methadone Screen Ur Barbiturates Screen Ur Phencyclidine Scrn Ur Amphetamines Screen U Benzodiazepines Scrn U Oth Cocaine Metabols U Cannabinoids Screen Assessment & Plan (1) Suicidal ideation Status: Acute Comment: psyche is managing
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
--- NOTE | 2018-08-13 13:02 | PCM.PYCHPN ---
Psychiatric Progress Note - Psychiatric Progress Note Patient seen today, length of contact: pt evaluatd discussed with team chart reviewed Patient Chief Complaint: I get angry when I think about my living situation Problems Identified/Issues Discussed: pt on evaluation presenting with depressed mood , anxious and irritable affect, reported feeling hopeless about his current living situation , continues to report passive suicidal ideation without active plan on the unit, feeling hopeless , discussed gradual increase in dose or remeron and trileptal, no reported side effects, pt denied perceptual disturbances, denied homicidal ideation Medical Problems: multiple inpatient hospitalizations , hx of non compliance DSM 5 Symptoms Update: bipolar i disorder mixed Medication Change: Yes (increase trileptal) Medical Record Reviewed: Yes Mental Status Examination - Cognitive Function Orientation: Person Memory: Intact Attention: WNL Concentration: WNL Association: WNL Fund of Knowledge: Poor Decription of patient's judgement and insights: partial insight poor judgment - Mood Mood: Depressed, Anxious - Affect Affect: Constricted, Depressed - Speech Speech: Loud Additional comments: over productive - Formal Thought Process Formal Thought Process: Circumstantial - Suicidal Ideation Suicidal Ideation: Yes - Homicidal Ideation Homicidal Ideation: No Goal/Treatment Plan - Goal/Treatment Plan Need for Continued Stay: Severe depression anxiety, Discharge may exacerbated symptoms Progress Toward Problem(s) and Goals/Treatment Plan: increase trileptal 350mg bid remeron 7.5mg qhs CBT group and supportive therapy internal medicine consult / for urine frequency
[2018-08-13] MEDS ORDERED: Potassium Chloride 20 mEq ER Tab PO ONE (13:11)
[2018-08-14 06:39] LABS: BLOOD UREA NITROGEN 21 mg/dl (9-20); CALCIUM 9.5 mg/dL (8.4-10.2); GFR NON-AFRICAN AMERICAN > 60
--- NOTE | 2018-08-14 12:06 | PCM.PYCHPN ---
Psychiatric Progress Note - Psychiatric Progress Note Patient seen today, length of contact: pt evaluatd discussed with team chart reviewed Patient Chief Complaint: I need help with housing Problems Identified/Issues Discussed: pt evaluated , calmer , less irritable, reported improved sleep, pt continues to feel down because of his current living situation being homeless, no reported side effects with the increase in trileptal, pt complaining of increased urine frequency, will follow up with urine culture and sensitivity pt denied any current thoughts of self harm, Medical Problems: multiple inpatient hospitalizations , hx of non compliance DSM 5 Symptoms Update: bipolar I disorder Medication Change: No (increase trileptal) Medical Record Reviewed: Yes Mental Status Examination - Cognitive Function Orientation: Person Memory: Intact Attention: WNL Concentration: WNL Association: WNL Fund of Knowledge: Poor Decription of patient's judgement and insights: partial insight poor judgment - Mood Mood: Depressed, Anxious - Affect Affect: Constricted, Depressed - Speech Speech: Loud - Formal Thought Process Formal Thought Process: Circumstantial - Suicidal Ideation Suicidal Ideation: No - Homicidal Ideation Homicidal Ideation: No Goal/Treatment Plan - Goal/Treatment Plan Need for Continued Stay: Severe depression anxiety, Discharge may exacerbated symptoms Progress Toward Problem(s) and Goals/Treatment Plan: trileptal 30mg bid remeron 7.5mg qhs CBT group and supportive therapy internal medicine consult / for urine frequency
[2018-08-15 10:09] VITALS: BP 92/68; PULSE 85; TEMP 98.2
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
== END 2018-08-15 14:06 | disposition home or self-care (01) | DRG 885 ==
LOC: H.ER 13:10 → H.ERHOLD 17:34 → H.PSYCH 20:29
PROVIDERS: ADMIT Psychiatry & Neurology Psychiatry; ATTEND Psychiatry & Neurology Psychiatry
PROC: GZ51ZZZ Individual Psychotherapy, Behavioral (ICD-10-PCS; principal; 2018-08-11)
PROC: GZ56ZZZ Individual Psychotherapy, Supportive (ICD-10-PCS; 2018-08-11)
DX: F31.4 Bipolar disorder, current episode depressed, severe, without psychotic features (principal); R45.851 Suicidal ideations; F17.200 Nicotine dependence, unspecified, uncomplicated; F31.63 Bipolar disorder, current episode mixed, severe, without psychotic features; Z59.0 Homelessness; Z90.49 Acquired absence of other specified parts of digestive tract; Z91.14 Patient's other noncompliance with medication regimen; Z91.19 Patient's noncompliance with other medical treatment and regimen; F41.9 Anxiety disorder, unspecified; Z79.899 Other long term (current) drug therapy; R35.0 Frequency of micturition

== ENCOUNTER 2018-08-29 12:05 | Inpatient (IN) | payer MEDICARE ==
[2018-08-29 12:05] VITALS: BMI 21.9
[2018-08-29 12:21] VITALS: O2SAT 99
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
[2018-08-29 14:58] LABS: HEMOGLOBIN 13.5 g/dL (12.0-18.0); MEAN CELL VOLUME 94.5 fl (80.0-94.0); MEAN CORPUSCULAR HEMOGLOBIN 31.8 pg (27.0-31.0); MEAN CORPUSCULAR HGB CONC 33.6 g/dL (33.0-37.0); RBC 4.26 Mil/uL (4.40-5.90); RED CELL DISTRIBUTION WIDTH 14.1 % (11.5-14.5); WHITE BLOOD COUNT 5.9 K/uL (4.8-10.8)
--- NOTE | 2018-08-29 14:58 | RAD ---
Date of service: 08/29/2018 HISTORY: medical clearance COMPARISON: 07/10/2018. TECHNIQUE: Chest PA and lateral views FINDINGS: LUNGS: No active pulmonary disease. Stable hyperinflation. PLEURA: No significant pleural effusion identified. No pneumothorax apparent. CARDIOVASCULAR: No aortic atherosclerotic calcification present. Normal cardiac size. No pulmonary vascular congestion. OSSEOUS STRUCTURES: No significant abnormalities. VISUALIZED UPPER ABDOMEN: Normal. OTHER FINDINGS: None. IMPRESSION: No active disease. No significant interval change compared to the prior examination(s).
[2018-08-29 15:07] LABS: SQUAMOUS EPITHIAL < 1 /hpf (0-5); URINE BACTERIA RARE (<OCC); URINE BILIRUBIN NEGATIVE (NEGATIVE); URINE BLOOD NEGATIVE (NEGATIVE); URINE CLARITY SLIGHTY-CLOUDY (Clear); URINE COLOR YELLOW (YELLOW); URINE GLUCOSE (UA) NEG (NEGATIVE); URINE LEUKOCYTE ESTERASE NEG Leu/uL (Negative); URINE PROTEIN 30 mg/dL (NEGATIVE); URINE UROBILINOGEN 0.2-1.0 mg/dL (0.2-1.0)
[2018-08-29 15:18] LABS: ALB/GLOB RATIO 1.4 (1.0-2.1); ALBUMIN 4.1 g/dL (3.5-5.0); ALT/SGPT 35 U/L (21-72); AST/SGOT 32 U/L (17-59); BLOOD UREA NITROGEN 16 mg/dl (9-20); CALCIUM 9.6 mg/dL (8.4-10.2); GFR NON-AFRICAN AMERICAN > 60
[2018-08-29 15:24] LABS: BARBITURATES, UR NEGATIVE (NEGATIVE); BENZODIAZEPINES, UR NEGATIVE (NEGATIVE); OPIATES, UR NEGATIVE (NEGATIVE); PHENCYCLIDINE, UR NEGATIVE (NEGATIVE)
[2018-08-29] MEDS ORDERED: DiphenhydrAMINE 50 mg/ml Inj IM PRN (18:22)
[2018-08-29] MEDS ORDERED: Magnesium Hydroxide Susp 30 ml UD PO PRN (18:22)
[2018-08-29] MEDS ORDERED: Alum-Mag Hydrox-Simethicone Susp (30 mL) PO PRN (18:22)
--- NOTE | 2018-08-29 20:59 | CARD ---
APPROVED REPORT Date of service: 08/29/2018 EKG Measurement Heart [id number] <Conclusion> Sinus bradycardia Otherwise normal ECG
--- NOTE | 2018-08-30 08:44 | PCM.BM ---
<Surekha Oh M - Last Filed: 08/30/18 09:04> Treatment assets and liabiliti Patient Assests: adapts well, cooperative, resourceful, self-reliant, ADL independent, physically healthy, good support system (Pt. identifies girlfriend as primary support but does report significant discord secondary to girlfriend being chronically mentally ill.), negotiates basic needs (Pt. able to communicate basic needs and engage in discussion regarding tx goals.), cognitively intact Patient Liabilities: financial problems, poor support system - Milieu Protocol Maintain good personal hygiene: every shift Encourage regular showers, every shift Remind patient to perform daily oral care, every shift Assist patient to perform ADL's Conduct patient checks and document Observation sheet: Q15 minutes Maintain personal safety: every shift Educate patient to report safety concerns to staff, every shift Monitor environment for contraband/sharps Medication safety: Monitor for expected outcome, potential side effects: daily, Assess barriers to learning: daily, Assess readiness for medication education: daily <Brooks Smith J - Last Filed: 09/01/18 16:07> Family Contact Family involvement: Famliy/SO not involved Family contact: Patient declines to allow family contact at present Family contact name: Pt refused. Family contact comment: Pt's girlfriend, Maria Elena, is currently hospitalized in [place] and has been for several months. Pt is unaware of a projected discharge date at this time. - Goals for Treatment Patient goals for treatment: Pt would like staff to connect him with housing. Discharge/Continuing Care - Education Needs Education Needs: Patient Medication, Patient Diagnosis/Disease Process, Patient Coping Skills, Patient Community resources, Patient Aftercare Safety Plan - Discharge Discharge Criteria: Tolerates medication w/o severe side effects, Free of Suicidal thoughts, Free of agitation, Ability to care for self, Reduction of target symptoms Discharge to:: Assisted - Treatment Team Participation Patient/Family/SO Statement: 09/01/18 16:07 Pt seen in treatment team on 08/30/18. Pt offered no questions or complaints regarding treatment, yet spoke about housing and how [facility] is too expensive to reside in. Pt has plan to move to [place]. Pt denied SI/HI and AVT hallucinations. Discussed with Family/SO: No Was Patient/Family/SO present at Treatment Team Meeting: Yes
--- NOTE | 2018-08-30 16:12 | PCM.PSYCH ---
Initial Psychiatric Evaluation - Initial Psychiatric Evaluation Type of Admission: Voluntary Legal Status: Capacity Chief Complaint (in patient's own words): I jave a hard time living like this History of Present Illness and Precipitating Events: pt is 47ys old male with previous diagnosis of bipolar disorder, presented to ER having suicidal ideatuion with plan to jump infront of the train reported increasingly depressed as he is homeless, living in a long term with financial difficulties, reported poor sleep poor appetite, low energy and anhedonia Current Medications: Active Medications Generic Name Dose Route Start Last Admin Trade Name Freq PRN Reason Stop Dose Admin Acetaminophen 650 mg 08/29/18 18:22 Tylenol 325mg Tab PO Q4 PRN Pain, moderate (4-7) Al Hydrox/Mg Hydrox/Simethicone 30 ml 08/29/18 18:22 Maalox Plus 30 Ml PO Q4 PRN Dyspepsia Diphenhydramine HCl 50 mg 08/29/18 18:22 Benadryl IM Q6 PRN Extrapyramidal S/S Unable PO Diphenhydramine HCl 50 mg 08/29/18 18:22 Benadryl PO Q6 PRN Extrapyramidal Symptoms Haloperidol 5 mg 08/29/18 18:22 Haldol PO Q4 PRN Agitation Haloperidol Lactate 5 mg 08/29/18 18:22 Haldol IM Q4 PRN Agitation, Unable to Take PO Lorazepam 2 mg 08/29/18 18:22 Ativan IM Q4 PRN Anxiety/Agitation,Unable PO Lorazepam 2 mg 08/29/18 18:22 Ativan PO Q4 PRN Anxiety/Agitation Magnesium Hydroxide 30 ml 08/29/18 18:22 Milk Of Magnesia PO HS PRN Constipation Mirtazapine 7.5 mg 08/29/18 22:00 08/29/18 22:38 Remeron PO Not Given HS KATIA Nicotine 1 patch 08/30/18 09:00 08/30/18 09:41 Nicoderm Cq TD 1 patch DAILY KATIA Administration Oxcarbazepine 150 mg 08/30/18 09:00 08/30/18 09:41 Trileptal PO 150 mg BID KATIA Administration Past Psychiatric History - Past Psychiatric History Explanation of prior treatment: multiple hospitalizations, hx of non compliance Pertinent Medical Hx (Current Medical&Sleep Prob, Allergies): Allergies Allergy/AdvReac Type Severity Reaction Status Date / Time No Known Allergies Allergy Verified 08/29/18 12:17 Multimineral/Multivitamin [Therapeutic-M Tab] 1 tab PO DAILY tab 06/13/18 traZODone [Desyrel] 200 mg PO HS 30 Days #60 tab 07/13/18 Mirtazapine [Remeron] 7.5 mg PO HS 30 Days #30 tab 08/15/18 Nicotine 21 mg/24 hr [Nicoderm Cq] 1 patch TD DAILY 30 Days #30 patch 08/15/18 OXcarbazepine [Trileptal] 300 mg PO BID 30 Days #60 tab 08/15/18 Mental Status Examination - Personal Presentation Personal Presentation: Looks stated age - Affect Affect: Constricted, Depressed - Motor Activity Motor Activity: Psychomotor Agitation - Reliability in Providing Information Reliability in Providing Information: Fair - Speech Speech: Relevant - Mood Mood: Depressed, Anxious - Formal Thought Process Formal Thought Process: Circumstantial - Obsessions/Compulsions Obsessions: No Compulsions: No - Cognitive Functions Orientation: Person Sensorium: Alert Attention/Concentration: Attentive Abstract Thinking: [place] Judgement: Imparied, as evidence by: Poor judgement - Risk Risk: Suicidal, Diminished functioning - Strength & Assets Inventory Strength & Assets Inventory: Life experience - Limitations Additional comments: financial difficulties DSM 5 DX - DSM 5 DSM 5 Diagnosis: bipolar I disorder mre depressed - Recommended/Plan of Treatment Treatment Recommendations and Plan of Treatment: trileptal 150mg bid remeron 15mg qhs cbt group and supportive therapy disposition planning
[2018-08-30 16:17] VITALS: RESP 18
--- NOTE | 2018-08-31 14:43 | PCM.PYCHPN ---
Psychiatric Progress Note - Psychiatric Progress Note Patient seen today, length of contact: pt evaluated discussed with team chart reviewed Patient Chief Complaint: I feel better with medications Problems Identified/Issues Discussed: pt evaluated, less irritable and less depressed, reported feeling better with current medications, no reported side effects, seen attending groups and compliant with treatment no reported side effects, no changes in sleep or appeti te Medical Problems: multiple hospitalizations, hx of non compliance DSM 5 Symptoms Update: bipolar i disorder Medication Change: Yes Medical Record Reviewed: Yes Mental Status Examination - Cognitive Function Orientation: Person, Place, Situation Memory: Intact Attention: WNL Concentration: WNL Association: WNL Fund of Knowledge: WNL - Mood Mood: Depressed, Anxious - Affect Affect: Constricted, Depressed - Formal Thought Process Formal Thought Process: Circumstantial - Suicidal Ideation Suicidal Ideation: No - Homicidal Ideation Homicidal Ideation: No Goal/Treatment Plan - Goal/Treatment Plan Need for Continued Stay: Discharge may exacerbated symptoms Progress Toward Problem(s) and Goals/Treatment Plan: increase trileptal 300mg bid remeron 15mg qhs cbt group and supportive therapy disposition planning
[2018-09-01 08:38] VITALS: BP 103/67; PULSE 73; TEMP 98.5
--- NOTE | 2018-09-01 11:06 | PCM.PYCHDC ---
Mental Status Examination - Mental Status Examination Orientation: Person, Place, Situation Memory: Intact Mood: Neutral Affect: Broad Speech: Appropriate Attention: WNL Concentration: WNL Association: WNL Fund of Knowledge: WNL Formal Thought Process: No Impairment Description of patient's judgement and insight: partial insight , poor judgment Psychotic Thoughts and Behaviors: pt denied psychotic symptoms, non elicited Suicidal Ideation: No Current Homicidal Ideation?: No Discharge Summary - Discharge Note Reason for Hospitalization: pt is 47ys old male with previous diagnosis of bipolar disorder, presented to ER having suicidal ideatuion with plan to jump infront of the train reported increasingly depressed as he is homeless, living in a [place] [facility] with financial difficulties, reported poor sleep poor appetite, low energy and anhedonia Laboratory Data: Abnormal Lab Results 08/30/18 08:15 RPR Nonreactive Consultations:: List each consultation separately and include: 1. Reason for request. 2. Findings. 3. Follow-up Summary of Hospital Course include:: 1. Description of specific treatment plan utilized for patients during their course of treatmen. 2. Summarize the time- course for resolution of acute symptoms and/or regressed behaviors. 3. Describe issues identified and worked on during hospitalization. 4. Describe medication utilized. 5. Describe medical problems identified and treated. 6. Reassessment of suicide risk Summary of Hospital Course: pt ON ADMISSION WAS STARTED ON TRILEPTAL AND REMERON CBT group and supportive therapy provided pt was compliant with medications, attended groups, no reported side effects on discharge mental status was stable, pt denied suicidal or homicidal ideation denied perceptual disturbances - Final Diagnosis (DSM 5) Condition upon Discharge: FAIR DSM 5: bipolar i DISORDER Disposition: HOME/ ROUTINE Follow-up Treatment Plan: increase trileptal 300mg bid remeron 15mg qhs cbt group and supportive therapy disposition planning Prescriptions/Medication Reconciliation: Mirtazapine [Remeron] 7.5 mg PO HS 30 Days #30 tab Nicotine 21 mg/24 hr [Nicoderm Cq] 1 patch TD DAILY 30 Days #30 patch OXcarbazepine [Trileptal] 300 mg PO BID 30 Days #60 tab - Antipsychotic Medications Pt discharged on 2 or more routine antipsychotic medications: No
== END 2018-09-01 14:28 | disposition home or self-care (01) | DRG 885 ==
LOC: H.ER 12:05 → H.ERHOLD 15:50 → H.PSYCH 17:21
PROVIDERS: ADMIT Psychiatry & Neurology Psychiatry; ATTEND Psychiatry & Neurology Psychiatry
PROC: GZ51ZZZ Individual Psychotherapy, Behavioral (ICD-10-PCS; principal; 2018-08-29)
PROC: GZ56ZZZ Individual Psychotherapy, Supportive (ICD-10-PCS; 2018-08-29)
DX: F31.30 Bipolar disorder, current episode depressed, mild or moderate severity, unspecified (principal); R45.851 Suicidal ideations; Z59.0 Homelessness; Z91.19 Patient's noncompliance with other medical treatment and regimen; F32.9 Major depressive disorder, single episode, unspecified; F41.9 Anxiety disorder, unspecified; Z79.899 Other long term (current) drug therapy

== ENCOUNTER 2018-09-08 15:31 | Emergency (ER) | payer MEDICARE ==
[2018-09-08 15:31] VITALS: BMI 21.9
[2018-09-08 15:40] VITALS: RESP 18; TEMP 98.4; O2SAT 99
--- NOTE | 2018-09-08 16:50 | ED PDOC ---
HPI: Psych/Substance Abuse Time Seen by Provider: 09/08/18 15:45 Chief Complaint (Nursing): Psychiatric Evaluation Chief Complaint (Provider): Psychiatric Evaluation History Per: Patient History/Exam Limitations: no limitations Additional Complaint(s): 47 y/o male presents to the ED due to Suicidal ideation. Patient states he was discharge from psych last week for bipolar disorder. Patient admits having not taken his medication due to [facility] it [facility] the [facility]. He reports having Si and wanting to throw himself on the train tracks. Patient denies alcohol abuse, drug abuse, HI, or any hallucinations. PMD: none provided Past Medical History Reviewed: Historical Data, Nursing Documentation, Vital Signs Vital Signs: Last Vital Signs Temp 98.4 F 09/08/18 15:38 Pulse 84 09/08/18 15:38 Resp 18 09/08/18 15:38 BP 113/78 09/08/18 15:38 Pulse Ox 99 09/08/18 15:38 - Medical History PMH: Anxiety, Bipolar Disorder, Depression Denies: Diabetes, Hepatitis, HIV, HTN, Chronic Kidney Disease, Seizures, Sexually Transmitted Disease - Surgical History Surgical History: Appendectomy - Family History Family History: States: Unknown Family Hx - Immunization History Hx Tetanus Toxoid Vaccination: No Hx Influenza Vaccination: No Hx Pneumococcal Vaccination: No - Home Medications Home Medications: Ambulatory Orders Medication Instructions Recorded Multimineral/Multivitamin 1 tab PO DAILY tab 06/13/18 [Therapeutic-M Tab] Nicotine 21 mg/24 hr [Nicoderm Cq] 1 patch TD DAILY 30 Days #30 patch 09/01/18 Mirtazapine [Remeron] 7.5 mg PO HS 30 Days #7 tab 09/08/18 OXcarbazepine [Trileptal] 300 mg PO BID 30 Days #14 tab 09/08/18 - Allergies Allergies/Adverse Reactions: Allergies Allergy/AdvReac Type Severity Reaction Status Date / Time No Known Allergies Allergy Verified 09/08/18 15:37 Review of Systems ROS Statement: Except As Marked, All Systems Reviewed And Found Negative Constitutional: Negative for: Fever ENT: Negative for: Nose Discharge, Throat Pain Respiratory: Negative for: Cough Psych: Positive for: Suicidal ideation Physical Exam - Reviewed Nursing Documentation Reviewed: Yes Vital Signs Reviewed: Yes - Physical Exam Appears: Positive for: No Acute Distress Head Exam: Positive for: ATRAUMATIC, NORMOCEPHALIC Skin: Positive for: Warm, Dry Eye Exam: Positive for: EOMI, PERRL ENT: Negative for: Pharyngeal Erythema, Tonsillar Exudate Neck: Positive for: Painless ROM, Supple Cardiovascular/Chest: Positive for: Regular Rate, Rhythm. Negative for: Murmur Respiratory: Positive for: Normal Breath Sounds. Negative for: Respiratory Distress Gastrointestinal/Abdominal: Positive for: Soft. Negative for: Tenderness Back: Positive for: Normal Inspection. Negative for: Decreased ROM Extremity: Positive for: Normal ROM. Negative for: Deformity Lymphatic: Negative for: Adenopathy Neurological/Psych: Positive for: Awake, Alert, Oriented (x3), Mood/Affect (depressed mood but normal affect). Negative for: Motor/Sensory Deficits - Laboratory Results Result Diagrams: 09/08/18 16:50 09/08/18 16:50 - ECG O2 Sat by Pulse Oximetry: 99 Medical Decision Making Medical Decision Making: Time: 1602 Initial Impression: Bipolar Disorder Initial Plan: -BMP -Drug screen -Alcohol serum -CBC -Urine dipstick -Crisis evaluation -1:1 Observation -Acetaminophen -Salicylate 1899 Evaluated by USAMA Castro who dw Dr Canales. Stable for discharge. Previous psych meds re-prescribed for patient. Scribe Attestation: Documented by Angela Chopra, acting as a scribe for Jillian Ramos. Provider Scribe Attestation: All medical record entries made by the Scribe were at my direction and personally dictated by me. I have reviewed the chart and agree that the record accurately reflects my personal performance of the history, physical exam, medical decision making, and the department course for this patient. I have also personally directed, reviewed, and agree with the discharge instructions and disposition. Disposition - Clinical Impression Clinical Impression: Bipolar disorder - Disposition Referrals: [facility] [Outside] Disposition: Routine/Home Disposition Time: 19:10 Condition: STABLE Prescriptions: Mirtazapine [Remeron] 7.5 mg PO HS 30 Days #7 tab OXcarbazepine [Trileptal] 300 mg PO BID 30 Days #14 tab Instructions: Bipolar Disorder (DC)
[2018-09-08 16:58] LABS: BASO # 0.1 K/uL (0.0-0.2); BASO % 1.2 % (0.0-2.0); EOS # 0.1 K/uL (0.0-0.7); EOS % 2.2 % (0.0-4.0); HEMOGLOBIN 14.3 g/dL (12.0-18.0); LYMPH # 1.6 K/uL (1.0-4.3); LYMPH % 26.8 % (20.0-40.0); MEAN CELL VOLUME 94.8 fl (80.0-94.0); MEAN CORPUSCULAR HEMOGLOBIN 32.1 pg (27.0-31.0); MEAN CORPUSCULAR HGB CONC 33.9 g/dL (33.0-37.0); MEAN PLATELET VOLUME 8.5 fl (7.2-11.7); MONO # 0.8 K/uL (0.0-0.8); MONO % 12.6 % (0.0-10.0); NEUT # 3.5 K/uL (1.8-7.0); NEUT % 57.2 % (50.0-75.0); NRBC % 0.1 % (0.0-0.0); RBC 4.46 Mil/uL (4.40-5.90); RED CELL DISTRIBUTION WIDTH 14.2 % (11.5-14.5); WHITE BLOOD COUNT 6.1 K/uL (4.8-10.8)
[2018-09-08 17:06] LABS: ACETAMINOPHEN < 10.0 ug/ml (10.0-30.0); BLOOD UREA NITROGEN 19 mg/dl (9-20); CALCIUM 9.4 mg/dL (8.4-10.2); GFR NON-AFRICAN AMERICAN > 60; SALICYLATE < 1.0 mg/dl
[2018-09-08 17:16] LABS: BARBITURATES, UR NEGATIVE (NEGATIVE); BENZODIAZEPINES, UR NEGATIVE (NEGATIVE); OPIATES, UR NEGATIVE (NEGATIVE); PHENCYCLIDINE, UR NEGATIVE (NEGATIVE)
[2018-09-08 19:27] VITALS: BP 122/76; PULSE 86
== END 2018-09-08 19:11 | disposition home or self-care (01) ==
LOC: H.ER 15:31
DX: F31.9 Bipolar disorder, unspecified (principal); F41.9 Anxiety disorder, unspecified
CPT/HCPCS: 80048; 85025; 99284; G0480